=== PATIENT | male | born 1930 | race Caucasian/White ===

== ENCOUNTER 2018-03-08 05:46 | Inpatient (IN) | payer MEDICARE, MEDICAID ==
[~2018-03-08] VITALS: Ht 172.7 cm; Wt 69.4 kg
--- NOTE | 2018-03-08 05:46 | NUR ---
PT BBRA 102 FROM HOME C/O VOMITTING. PT NOTED TO BE LETHARGIC AND AAOX1. PT IS HYPOTHERMIC WITH HYPERTENSION AND TACHYCARDIA. FAMILY IS AT BEDSIDE STATING "THIS IS NORMAL FOR HIM BECAUSE HE HAS DEMENTIA". WILL CONTINUE TO MONITOR FOR ANY CHANGES DURING THE SHIFT.
[2018-03-08] MEDS ORDERED: LIDOCAINE 2% JEL UROJET 10 ML MM ONE ×2 (06:15→06:30)
[2018-03-08] MEDS ORDERED: MEROPENEM 1 G VIAL IV ONE (06:24)
[2018-03-08] MEDS ORDERED: ONDANSETRON HCL/PF 4 MG/2 ML VIAL ONE (06:24)
[2018-03-08] MEDS ORDERED: IV NS 0.9% 1,000 ML BAG IV ONE (06:30)
[2018-03-08] MEDS ORDERED: ONDANSETRON HCL/PF - ER 4 MG/2 ML VIAL IV ONE (06:30)
[2018-03-08] MEDS ORDERED: MEROPENEM 1 G in IV NS 0.9% 100 ML IV ONE (06:30)
--- NOTE | 2018-03-08 06:30 | NUR ---
BLOOD/URINE SENT TO LAB
--- NOTE | 2018-03-08 06:35 | NUR ---
EKG AT BEDSIDE
[2018-03-08 06:37] LABS: BASOPHILS % (AUTO) 0.4 % (0.0-2.0); EOSINOPHILS % (AUTO) 4.3 % (0.0-6.0); HEMATOCRIT 40 % (39-51); HEMOGLOBIN 13.8 g/dL (13.5-17.5); LYMPHOCYTES # (AUTO) 1.6 /CMM (0.8-4.8); LYMPHOCYTES % (AUTO) 25.8 % (20.0-44.0); MEAN CORPUSCULAR HGB CONC 34 g/dl (31.0-36.0); MEAN CORPUSCULAR VOLUME 94 fL (80-96); MONOCYTES # (AUTO) 0.3 /CMM (0.1-1.30); MONOCYTES % (AUTO) 4.8 % (2.0-12.0); NEUTROPHILS # (AUTO) 3.9 /CMM (1.8-8.9); NEUTROPHILS % (AUTO) 64.7 % (43.0-81.0); PLATELET COUNT (AUTO) 280 /CMM (150-450); RDW COEFFICIENT OF VARIATION 13.5 (11.5-15.0); RED BLOOD CELL COUNT(AUTO) 4.27 MIL/uL (4.5-6.0); WHITE BLOOD COUNT (AUTO) 6.1 K/uL (4.3-11.0)
[2018-03-08 06:39] LABS: CARBON DIOXIDE 24 mmol/L (21-32); CHLORIDE 104 mmol/L (98-107); CREATININE 0.9 mg/dL (0.6-1.3); GLUCOSE 132 mg/dL (74-106); POTASSIUM 3.3 mmol/L (3.5-5.1); SODIUM SERUM 140 mmol/L (136-145); UREA NITROGEN, BLOOD 11 mg/dL (7-18)
[2018-03-08 06:47] LABS: ALANINE AMINOTRANSFERASE 35 U/L (12-78); ALKALINE PHOSPHATASE 57 U/L (46-116); ASPARTATE AMINOTRANSFERASE 21 U/L (15-37); BILIRUBIN,DIRECT 0.1 mg/dL (0.0-0.2); BILIRUBIN,TOTAL 0.9 mg/dL (0.2-1.0); TOTAL PROTEIN, SERUM 7.8 g/dL (6.4-8.2)
[2018-03-08 06:56] LABS: TROPONIN I < 0.017 ng/mL (0.00-0.056)
[2018-03-08 06:59] LABS: APPEARANCE,URINE CLEAR (CLEAR); BILIRUBIN,URINE NEGATIVE (NEGATIVE); BLOOD, URINE 2+ Ery/uL (NEGATIVE); COLOR,URINE YELLOW (YELLOW); KETONES,URINE NEGATIVE (NEGATIVE); LEUKOCYTE ESTERASE ,URINE NEGATIVE (NEGATIVE); NITRITE, URINE NEGATIVE (NEGATIVE); PH,URINE 5.5 (5.0-8.0); PROTEIN,URINE NEGATIVE (NEGATIVE); UGLUCOSE NEGATIVE (NEGATIVE); UROBILINOGEN,URINE 0.2 EU/dL (0.2)
[2018-03-08 07:00] LABS: INR 1.07 (0.87-1.13)
[2018-03-08 07:07] LABS: BACTERIA,URINE None seen /HPF (None Seen); WBC,URINE 0-2 /HPF (0-3)
[2018-03-08 07:08] LABS: SQUAMOUS EPITHELIAL CELL,UR Few /HPF (None Seen)
--- NOTE | 2018-03-08 07:20 | NUR ---
PT OFF TO CT
--- NOTE | 2018-03-08 07:28 | NUR ---
PT BACK FROM CT SCAN
--- NOTE | 2018-03-08 07:30 | NUR ---
RECEIVED REPORT FOR ARELI.
--- NOTE | 2018-03-08 08:38 | NUR ---
PATIENT TAKEN TO CT VIA STRETCHER.
--- NOTE | 2018-03-08 08:51 | NUR ---
PATIENT RETURNED FROM CT IN STABLE CONDITION.
--- NOTE | 2018-03-08 09:43 | NUR ---
RITIKA KAT APPLIED PER DR. NAPIER'S ORDERS.
--- NOTE | 2018-03-08 09:55 | NUR ---
REQUESTED DESTINI BED FROM [facility]
--- NOTE | 2018-03-08 10:00 | NUR ---
DESTINI: 115-1, DX: PNEUMONIA
--- NOTE | 2018-03-08 10:06 | NUR ---
DAVID HERNANDEZ [phone]
[2018-03-08] MEDS ORDERED: OMEP20CA10 PO (10:27)
[2018-03-08] MEDS ORDERED: ASPI-1169 PO (10:27)
[2018-03-08] MEDS ORDERED: ALEN70TA45 PO (10:27)
[2018-03-08] MEDS ORDERED: DOCU250C14 PO (10:27)
[2018-03-08] MEDS ORDERED: POTA8TAB8 PO (10:27)
[2018-03-08] MEDS ORDERED: ERGO500014 PO (10:27)
[2018-03-08] MEDS ORDERED: ESCI10TA PO (10:27)
[2018-03-08] MEDS ORDERED: AMLO10TA6 PO (10:27)
[2018-03-08] MEDS ORDERED: FINA5TAB11 PO (10:27)
[2018-03-08] MEDS ORDERED: TAMS0.4C34 PO (10:27)
[2018-03-08] MEDS ORDERED: LOSA1TAB36 PO (10:27)
[2018-03-08] MEDS ORDERED: FOLI1TAB16 PO (10:27)
[2018-03-08] MEDS ORDERED: FURO40TA5 PO (10:27)
--- NOTE | 2018-03-08 10:27 | NUR ---
REPORT GIVEN TO SOLO GUTIERRES FOR ARELI UPON ADMISSION.
--- NOTE | 2018-03-08 10:27 | NUR ---
TD/RN REPORT FROM ER REPORT RECEIVED FROM ER NURSE LAURA FOR PT TRO BE ADMITTED FOR PNEUMONIA, UNDER THE CARE OF DR. HERNANDEZ. AWAITING FOR PT'S ARRIVAL.
[2018-03-08] MEDS ORDERED: THIA50TA PO (10:28)
[2018-03-08] MEDS ORDERED: DONE10TA44 PO (10:32)
[2018-03-08] MEDS ORDERED: MEMA10TA PO (10:32)
--- NOTE | 2018-03-08 11:20 | NUR ---
PATIENT TRANSPORTED TO [facility] VIA ACLS PROTOCOL. RNSOLO TO PROVIDE ARELI.
--- NOTE | 2018-03-08 11:30 | NUR ---
TD/TICKET SORTER TO DESTINI - ROOM 115#1 PT ARRIVED VIA GURNEY ACCOMPANIED BY ER NURSE LAURA, MANAGER DECISION SUPPORT AND PT'S SON. PT TRANSFERRED TO HOSPITAL BED. PT A/O X 1, CONFUSED. ON ROOM AIR SATURATING @ 96%, LUNG SOUNDS DIMINISHED, ON TELE WITH SINUS RHYTHM, HR 96. IV SITE PATENT WITH NO S/S OF INFECTION, SL. WALKER CATHETER INTACT NOTED WITH CLEAR YELLOW URINE OUTPUT. BILATERAL WRIST RESTRAINTS TO BE PLACED, PT BECOMING MORE CONFUSED AND COMBATIVE. CL WITHIN REACHED AND SAFETY MAINTAINED.
[2018-03-08 12:00] VITALS: BP 170/78
--- NOTE | 2018-03-08 12:15 | NUR ---
TD/RN ADDITIONAL ADMITTING ORDERS CALLED DR. HERNANDEZ, NOTIFIED HIM OF LACTIC ACID RESULTS, RECEIVED SEVERAL T.Os TO INCLUDE PHYSICIANS CONSULTS, LAB DRAWS AND MEDICATIONS. ORDERS NOTED AND TO BE CARRIED. ON GOING MONITORING.
[2018-03-08] MEDS ORDERED: ONDANSETRON HCL/PF 4 MG/2 ML VIAL IV PRN ×2 (12:30)
[2018-03-08] MEDS ORDERED: IV NS 0.9% 1,000 ML BAG IV PRN (12:30)
[2018-03-08] MEDS ORDERED: ACETAMINOPHEN 325 MG TABLET PO PRN (12:30)
[2018-03-08 12:50] LABS: ABG BASE EXCESS -2.6 mmol/L; ABG OXYGEN SATURATION 96.6 % (92.0-98.5); ABG PCO2 32.8 mmHg (35.0-45.0); ABG PH 7.424 (7.350-7.450); ABG PO2 97.8 mmHg (75.0-100.0); AaDO2 12.7 mmHg; COHb 0.2 % (0.5-1.5); MetHb 0.5 % (0.0-1.5); O2Hb 95.9 % (94.0-97.0); SITE, ABG Right Femoral; VENT MODE, BG ROOM AIR
[2018-03-08 12:56] LABS: MAGNESIUM 1.9 mg/dL (1.8-2.4)
[2018-03-08] MEDS ORDERED: PIPERACILLIN /TAZOBACTAM 3.375 G in IV D5W 100 ML IV SCH (12:56)
[2018-03-08] MEDS ORDERED: IV NS 0.9% 1,000 ML IV PRN ×2 (13:00→18:00)
[2018-03-08 13:22] LABS: THYROID STIMULATING HORMONE 3.257 uIU/mL (0.358-3.74)
[2018-03-08] MEDS ORDERED: FEE PK DOSING 1 MIN EA MC ONE (13:23)
[2018-03-08] MEDS: ZOSYN IVPB 3.375 G in IV D5W 50ml IV SCH ×2 (14:59→17:47)
[2018-03-08] MEDS: VANCOMYCIN 1 GM in IV NS 0.9% 250 ML IV SCH (15:46)
[2018-03-08 16:00] VITALS: BP 165/75
[2018-03-08] MEDS ORDERED: VANCOMYCIN 1 GM in IV D5W 250 ML IV SCH (17:00)
[2018-03-08] MEDS ORDERED: PNEUMOCOCCAL 23-VAL P-SAC VAC 0.5 ML VIAL SQ ONE (17:51)
--- NOTE | 2018-03-08 18:03 | NUR ---
TD/RN PNEUMOCOCCAL VACCINE VACCINE CRITERIA ASSESSED, CONSENT OBTAINED. PT GIVEN PNEUMOCOCCAL VACCINE. PT TOLERATED ADMINISTRATION.
[2018-03-08 20:00] VITALS: BP 140/68
--- NOTE | 2018-03-08 20:00 | NUR ---
TD/RN AM SHIFT END NOTES ALL NEEDS MET. RESULTS OF LACTIC ACIDS HAVE BEEN REPORTED TO DR. HERNANDEZ, AND ORDERS WERE CARRIED OUT. IV SITE PATENT WITH ON GOING INFUSION ON NS @ 200CC/HR, PER MD NO STOP DATE AT THIS TIME. ANOTHER LACTIC ACID DRAW ORDERED AT THIS TIME, ENDORSED TO PM NURSE TO CLARIFY WITH MD IF @2HRS OF LACTIC ACID WILL BE CONTINUED AFTER LATEST RESULT NOTIFIED. WALKER CATHETER INTACT AND BILATERAL WRIST RESTRAINTS IN PLACED. PT ENDORSED TO PM NURSE TO CONTINUE CARE. CL WITHIN REACHED AND SAFETY MAINTAINED.
[2018-03-08] MEDS: PANTOPRAZOLE 40 MG VIAL IV SCH (20:53)
[2018-03-08] MEDS: ENOXAPARIN SODIUM 40 MG/0.4 ML DISP.SYRIN SQ SCH (20:54)
--- NOTE | 2018-03-08 21:00 | NUR ---
TEST ENGINEERING INTERN - REC'D PT. AT 19:00, VERBAL REPORT ENDORSED TO ME BY SOLO GUTIERRES. PT. IS AN [place] SPEAKING MALE, THAT IS PHYSICALLY ABUSIVE TO STAFF. BILAT. SOFT WRIST RESTRAINTS WERE ALREADY ON PT., HOWEVER, PT. IS STILL ABLE TO GRAB AT ANYTHING HE CAN. PT. IS VERY STRONG TO ALL EXT.X 4. (PT. IS ATTEMPTING TO KICK STAFF ALSO). PT'S SON/RUMA JUST ARRIVED. A COMPLETE STATUS UPDATE WAS ADDRESSED TO SON, ESPECIALLY RE: PT'S COMBATIVE BEHAVIOR. PT'S SON WAS ALREADY AWARE OF IT. PT.WAS DUE FOR A LACTIC ACID LAB DRAW, BUT THE PHLEB - T0MIST LEFT W/O TELLING STAFF THAT PT. WAS COMBATIVE W/HER. LAB WAS CALLED FOR ANOTHER DRAW. AFEBRILE. NO EDEMA. RAC-18G HAS 0.9%NS INFUSING AT 200CC/HR. SITE IS CDI. SKIN INTACT. WALKER CATH TO GRAVITY W/GOOD UOP. PT.IS ON R/A W/O2 SATS >96%. LUNG GAMBLE HAVE DIM. RHONCHI AUSC. NO N&V NOTED. SBP'S ARE 140-170'S. HR/90'S W/PAC'S & PVC'S. CONT. POC.
[2018-03-08] MEDS ORDERED: CLONIDINE HCL 0.1MG/24H PTWK 1 EA PATCH TD SCH (22:30)
[2018-03-08] MEDS ORDERED: IV NS 0.9% 1,000 ML BAG IV SCH (22:30)
[2018-03-09] VITALS (7 sets, daily range): BP systolic 109–141; BP diastolic 52–70
--- NOTE | 2018-03-09 00:01 | NUR ---
BRASS CUTTER - DR. HERNANDEZ WAS HERE AT 21:45 TO ASSESS PT. STATUS UPDATE WAS ADDRESSED. ORDERS REC'D. MIV WAS TITRATED DOWN TO 150CC/HR. CLONIDINE PATCH 0.1MG/TP ORDERED. LACTIC ACID LAB DRAWS ARE NOW Q 4 HRS INSTEAD OF Q 2HR. BLOOD CX'S WERE ALSO DONE W/21:00 LACTIC ACID DRAW. LA WAS 2.8, DOWN FROM LAST DRAW OF 3.7. PT. IS MONITORED CLOSELY. CONT. POC.
[2018-03-09] MEDS: ZOSYN IVPB 3.375 G in IV D5W 50ml IV SCH ×4 (00:30→17:43)
[2018-03-09] MEDS: VANCOMYCIN 1 GM in IV NS 0.9% 250 ML IV SCH ×2 (01:36→15:42)
[2018-03-09 06:07] LABS: BASOPHILS % (AUTO) 0.2 % (0.0-2.0); EOSINOPHILS % (AUTO) 0.1 % (0.0-6.0); HEMATOCRIT 37 % (39-51); HEMOGLOBIN 12.5 g/dL (13.5-17.5); LYMPHOCYTES # (AUTO) 0.8 /CMM (0.8-4.8); MEAN CORPUSCULAR HGB CONC 34 g/dl (31.0-36.0); MEAN CORPUSCULAR VOLUME 94 fL (80-96); MONOCYTES # (AUTO) 0.6 /CMM (0.1-1.30); MONOCYTES % (AUTO) 6.2 % (2.0-12.0); NEUTROPHILS # (AUTO) 8.7 /CMM (1.8-8.9); NEUTROPHILS % (AUTO) 85.5 % (43.0-81.0); PLATELET COUNT (AUTO) 266 /CMM (150-450); RDW COEFFICIENT OF VARIATION 13.3 (11.5-15.0); RED BLOOD CELL COUNT(AUTO) 3.91 MIL/uL (4.5-6.0); WHITE BLOOD COUNT (AUTO) 10.1 K/uL (4.3-11.0)
--- NOTE | 2018-03-09 06:45 | NUR ---
DEVELOPMENTAL THERAPIST - PT. REC'D A COMPLETE BEDBATH AT 4AM, NO S/S OF DISTRESS OR DISCOMFORT NOTED. PT. HAS INTERMITTENT TIMES OF LUCIDITY & CONFUSION. CLONIDINE PATCH ON PT'S RT.UPPER C/W. LAST LACTIC ACID WAS #1.5 AT 02:30 AM. AWAITING 6AM LABS/PENDING. HICCUPS STOPPED AFTER BEDBATH. 0.9%NS IS STILL INFUSING AT 150CC/HR. DR. HERNANDEZ DID TALK TO BOTH SONS PRIOR TO LEAVING LAST NIGHT. BROUGHT MEDICAL RECORDS & AN EMAR SHEET FROM [facility]. FROM A PRIOR ADMISSION. EXTENSIVE HX IS NOTED IN THESE FORMS THAT ARE NOW IN THE PTS CHART. CONT. POC.
[2018-03-09 06:47] LABS: CALCIUM, SERUM 8.5 mg/dL (8.5-10.1); CARBON DIOXIDE 26 mmol/L (21-32); CHLORIDE 107 mmol/L (98-107); CREATININE 0.9 mg/dL (0.6-1.3); GLUCOSE 101 mg/dL (74-106); MAGNESIUM 1.8 mg/dL (1.8-2.4); PHOSPHORUS 2.1 mg/dL (2.5-4.9); POTASSIUM 3.4 mmol/L (3.5-5.1); SODIUM SERUM 142 mmol/L (136-145); UREA NITROGEN, BLOOD 9 mg/dL (7-18)
[2018-03-09] MEDS ORDERED: IV NS 0.9% 1,000 ML IV PRN (07:00)
--- NOTE | 2018-03-09 08:00 | NUR ---
TD/RN AM SHIFT INITIAL NOTES RECEIVED PT ASLEEP IN BED, PT A/O X 1, CONFUSED, CALM AT THIS TIME. ON ROOM AIR SATURATING @ 100%, LUNG SOUNDS DIMINISHED. ON TELE MONITORING WITH SINUS RHYTHM, HR 72. WITH ON GOING IV INFUSION OF NS @ 150CC/HR, IV SITE PATENT WITH NO S/S OF INFECTION. WALKER CATHETER INTACT WITH CLEAR YELLOW URINE OUTPUT. BILATERAL WRIST RESTRAINTS RELEASED TO CHECK FOR CIRCULATION AND COMFORT THEN PLACED BACK. PT IS COMFORTABLE. CL WITHIN REACHED AND SAFETY MAINTAINED. ON GOING MONITORING.
[2018-03-09] MEDS ORDERED: Magnesium 1GM/D5W 100ML PREMIX 100 ML IV SCH ×2 (09:00→10:00)
[2018-03-09] MEDS: K PHOS NEUTRAL 250 MG TABLET PO SCH ×6 (09:37→20:14)
[2018-03-09] MEDS ORDERED: NEUTRA PHOS 1 POWD.PACKET PO SCH (10:30)
[2018-03-09 10:52] LABS: THYROID STIMULATING HORMONE 1.249 uIU/mL (0.358-3.74)
[2018-03-09] MEDS: Potassium Chloride 10 MEQ in IV NS 0.9% 1,000 ML IV PRN (11:48)
[2018-03-09 13:00] LABS: TROPONIN I 0.314 ng/mL (0.00-0.056)
--- NOTE | 2018-03-09 15:44 | NUR ---
MS1/MEAT HOSTESS OF CARE REPORT GIVEN TO NURSE ODONNELL. PT ENDORSED TO CONTINUE CARE.
--- NOTE | 2018-03-09 15:45 | NUR ---
ms rn notes Transfer care from [facility]. Patient in bed, awake, head of bed elevated, bilateral soft restraint in placed. On room air and tolerated well. IV intact and patent with IVF infusing well. call light with in patient reach, will continue to monitor.
--- NOTE | 2018-03-09 19:12 | NUR ---
ms rn closing notes All needs provided, attended, and anticipated. Patient in bed and stable at this time. Call light with in patient reach, endorsed to next shift RN to continue care.
--- NOTE | 2018-03-09 19:20 | NUR ---
RN M/S NOTE RECEIVED PATIENT CONFUSED, AOX1, BILATERAL SOFT WRIST RESTRAINTS, PATIENT PULLED OUT WALKER CATHETER, NO SIGNS OF TRAUMA NO BLOOD NOTED, RAC #20G PATENT FLUSHING WELL, WITH NS WITH 10MEQ KCL AT 100 ML/HR, SITE CDI, NO PAIN NOTED, NO S/SX OF CARDIAC OR RESPIRATORY DISTRESS NOTED, WILL CONTINUE TO MONITOR FOR ANY CHANGES IN CONDITION, SAFETY MAINTAINED AT ALL TIMES, BED IN LOW LOCKED POSITION AND CALL LIGHT WITHIN REACH.
[2018-03-09] MEDS: PANTOPRAZOLE 40 MG VIAL IV SCH (20:14)
[2018-03-09] MEDS: ENOXAPARIN SODIUM 40 MG/0.4 ML DISP.SYRIN SQ SCH (20:15)
[2018-03-10] MEDS: ZOSYN IVPB 3.375 G in IV D5W 50ml IV SCH ×5 (02:41→23:12)
[2018-03-10] MEDS: VANCOMYCIN 1 GM in IV NS 0.9% 250 ML IV SCH ×2 (02:43→13:44)
[2018-03-10 04:00] VITALS: BP 160/84
[2018-03-10 06:56] LABS: BASOPHILS % (AUTO) 0.4 % (0.0-2.0); EOSINOPHILS % (AUTO) 1.2 % (0.0-6.0); HEMATOCRIT 41 % (39-51); LYMPHOCYTES # (AUTO) 1.8 /CMM (0.8-4.8); LYMPHOCYTES % (AUTO) 17.5 % (20.0-44.0); MEAN CORPUSCULAR HGB CONC 34 g/dl (31.0-36.0); MEAN CORPUSCULAR VOLUME 95 fL (80-96); MONOCYTES # (AUTO) 0.7 /CMM (0.1-1.30); MONOCYTES % (AUTO) 7.3 % (2.0-12.0); NEUTROPHILS # (AUTO) 7.5 /CMM (1.8-8.9); NEUTROPHILS % (AUTO) 73.6 % (43.0-81.0); PLATELET COUNT (AUTO) 283 /CMM (150-450); RDW COEFFICIENT OF VARIATION 13.6 (11.5-15.0); RED BLOOD CELL COUNT(AUTO) 4.36 MIL/uL (4.5-6.0); WHITE BLOOD COUNT (AUTO) 10.2 K/uL (4.3-11.0)
[2018-03-10 07:11] LABS: ALANINE AMINOTRANSFERASE 40 U/L (12-78); ALBUMIN 3.5 g/dL (3.4-5.0); ALKALINE PHOSPHATASE 54 U/L (46-116); ASPARTATE AMINOTRANSFERASE 46 U/L (15-37); BILIRUBIN,TOTAL 2.1 mg/dL (0.2-1.0); CALCIUM, SERUM 8.3 mg/dL (8.5-10.1); CARBON DIOXIDE 26 mmol/L (21-32); CHLORIDE 103 mmol/L (98-107); GLUCOSE 114 mg/dL (74-106); MAGNESIUM 2.1 mg/dL (1.8-2.4); PHOSPHORUS 3.2 mg/dL (2.5-4.9); POTASSIUM 3.2 mmol/L (3.5-5.1); SODIUM SERUM 140 mmol/L (136-145); TOTAL PROTEIN, SERUM 7.4 g/dL (6.4-8.2); UREA NITROGEN, BLOOD 7 mg/dL (7-18)
--- NOTE | 2018-03-10 07:35 | NUR ---
RN OPENING NOTES RECEIVED PT. PT IS STABLE AND SLEEPING IN BED. PER DEHYDROGENATION SUPERVISOR REPORT, PT IS CONFUSED, ANXIOUS AND COMBATITIVE. BILATERAL WRIST RESTRAINTS ORDERED AND PLACED BY DEHYDROGENATION SUPERVISOR RN. IV ACCESS LOCATED ON RIGHT AC 20G INFUSING NS WITH 10 MEQ kcl @ 100 ML/HR. BLOOD CULTURE REMAINS PENDING. SAFETY MEASURES IN PLACE, CALL LIGHT WITHIN REACH. WILL CONTINUE TO MONITOR.
[2018-03-10 08:00] VITALS: BP 160/84
[2018-03-10] MEDS: Potassium Chloride 10 MEQ in IV NS 0.9% 1,000 ML IV PRN (08:25)
[2018-03-10] MEDS: K PHOS NEUTRAL 250 MG TABLET PO SCH (08:25)
[2018-03-10] MEDS: POTASSIUM CHLORIDE 20 MEQ TAB.PRT.SR PO SCH ×2 (10:59→11:35)
[2018-03-10 12:00] VITALS: BP 141/86
[2018-03-10 16:00] VITALS: BP 131/67
--- NOTE | 2018-03-10 19:27 | NUR ---
RN CLOSING NOTES PT IN BED RESTING. NO S/S OF RESP DISTRESS OR SOB. NO C/O PAIN AT THIS TIME. PT IS ANXIOUS/DISRUPTIVE & ATTEMPTING TO GET OUT OF BED. OVERSEAMER NURSE AT BEDSIDE ATTEMPTING TO CALM PATIENT. ALL PT NEEDS ANTICIPATED AND MET, SAFETY MEASURES IN PLACE, CALL LIGHT IN REACH. WILL ENDORSE TO OVERSEAMER FOR ARELI.
[2018-03-10 20:00] VITALS: BP 116/60
[2018-03-10] MEDS: PANTOPRAZOLE 40 MG VIAL IV SCH (21:04)
[2018-03-10] MEDS: ENOXAPARIN SODIUM 40 MG/0.4 ML DISP.SYRIN SQ SCH (21:06)
[2018-03-11] MEDS: VANCOMYCIN 1 GM in IV NS 0.9% 250 ML IV SCH ×2 (02:11→13:42)
[2018-03-11 04:00] VITALS: BP_SYST 151; BP_SYST 154; BP_DIAS 72; BP_DIAS 73
[2018-03-11] MEDS: Potassium Chloride 10 MEQ in IV NS 0.9% 1,000 ML IV PRN (05:15)
[2018-03-11] MEDS: ZOSYN IVPB 3.375 G in IV D5W 50ml IV SCH ×4 (06:47→23:37)
[2018-03-11 06:59] LABS: CALCIUM, SERUM 8.6 mg/dL (8.5-10.1); CARBON DIOXIDE 28 mmol/L (21-32); CHLORIDE 105 mmol/L (98-107); CREATININE 0.8 mg/dL (0.6-1.3); GLUCOSE 89 mg/dL (74-106); POTASSIUM 3.1 mmol/L (3.5-5.1); SODIUM SERUM 142 mmol/L (136-145); UREA NITROGEN, BLOOD 8 mg/dL (7-18)
--- NOTE | 2018-03-11 07:00 | NUR ---
MSRN NOTES. PT RECEIVED A&0X1 AND RESTING IN BED. PT WITH SWR IN.SITU AND NEURO INTACT. PT NPO R/T ABDO US. PT WITH IVC AT R AC INTACT AND SALINE FLUSH PATENT, IVF RECOMMENCED PER PRX. PT WITH FC INTACT AND OPERATIONAL DRAINING LITE PINK/YELLOW URINE. PT BED IN LOWEST LOCKED POSITION WITH HANDRAILSX4 AND CALL VELARDE WITHIN REACH, RN BASED OUTSIDE ROOM FOR SAFETY. PT REPOSITIONED AND SHEETS STRAIGHTENED FOR COMFORT, ROOM STIMULI LIMITED AND PT IS WITHOUT CONCERN OR COMPLAINT AT THIS TIME.
[2018-03-11 08:00] VITALS: BP 143/60
[2018-03-11] MEDS ORDERED: POTASSIUM CHLORIDE 20 MEQ TAB.PRT.SR PO SCH (09:00)
[2018-03-11] MEDS: Potassium Chloride 20 MEQ in IV NS 0.9% 1,000 ML IV PRN (10:50)
[2018-03-11] MEDS: POTASSIUM CHLORIDE 20 MEQ TAB.PRT.SR PO SCH (10:59)
--- NOTE | 2018-03-11 13:00 | NUR ---
MSRN NOTES. PT ATTEMPTING TO REMOVED WALKER CATH WITH FEET. WALKER SECURED WITH BANDAGE AT 3 POINTS ON LEG.
[2018-03-11] MEDS: GABAPENTIN 100 MG CAPSULE PO SCH ×2 (13:42→16:10)
[2018-03-11 15:43] LABS: CALCIUM, SERUM 8.4 mg/dL (8.5-10.1); CARBON DIOXIDE 26 mmol/L (21-32); CHLORIDE 106 mmol/L (98-107); GLUCOSE 126 mg/dL (74-106); POTASSIUM 3.6 mmol/L (3.5-5.1); SODIUM SERUM 143 mmol/L (136-145); UREA NITROGEN, BLOOD 9 mg/dL (7-18)
[2018-03-11] MEDS: GABAPENTIN 300 MG CAPSULE PO STA ×2 (15:58→16:15)
[2018-03-11 16:00] VITALS: BP 129/44
--- NOTE | 2018-03-11 16:10 | NUR ---
MSRN NOTES. MD OLVERA REQUESTING 300MG NEURONTIN PO ONCE, LATER ORDER OF 100MG CANCELED, ORDERS PLACED.
--- NOTE | 2018-03-11 17:00 | NUR ---
MSRN NOTES. PT REFUSING MEDICATIONS, COMBATIVE AND RESTLESS. MD OLVERA AWARE.
[2018-03-11] MEDS ORDERED: OLANZAPINE 10 MG VIAL IM ONE (18:00)
--- NOTE | 2018-03-11 18:00 | NUR ---
MSRN NOTES. MD OLVERA REQUESTING ZYPREXA 2.5MG IM X1. ORDERS PLACED.
--- NOTE | 2018-03-11 18:16 | NUR ---
MSRN CLOSING NOTES. PT IN BED, RESTLESS. PT WITH SWR IN.SITU AND NEURO INTACT. PT WITH IVC AT R AC INTACT AND OPERATIONAL. PT WITH FC INTACT AND OPERATIONAL DRAINING PINK/YELLOW URINE. PT BED IN LOWEST LOCKED POSITION WITH HANDRAILSX4 AND CALL VELARDE WITHIN REACH. PT WITH 1:1 SITTER. PT ROOM STIMULI LIMITED. PT BED IN LOWEST LOCKED POSITION WITH HANDRAILSX4 AND CALL VELARDE WITHIN REACH. ALL DAY NURSE DUTIES ATTENDED TO. WILL ENDORSE TO NIGHT NURSE AT BEDSIDE FOR ARELI.
--- NOTE | 2018-03-11 18:35 | NUR ---
MSRN NOTES. PT OK TO TAKE 300MG NEURONTINX1 PER MD OLVERA, FREDERICK X1 CANCELLED AWARE.
[2018-03-11 21:00] VITALS: BP 115/44
[2018-03-11] MEDS: PANTOPRAZOLE 40 MG VIAL IV SCH (21:23)
[2018-03-11] MEDS: ENOXAPARIN SODIUM 40 MG/0.4 ML DISP.SYRIN SQ SCH (21:24)
[2018-03-12] MEDS: VANCOMYCIN 1 GM in IV NS 0.9% 250 ML IV SCH (02:12)
[2018-03-12 04:00] VITALS: BP 134/65
[2018-03-12] MEDS: ZOSYN IVPB 3.375 G in IV D5W 50ml IV SCH ×4 (05:13→23:24)
[2018-03-12] MEDS: Potassium Chloride 20 MEQ in IV NS 0.9% 1,000 ML IV PRN (05:19)
[2018-03-12 07:20] LABS: CALCIUM, SERUM 8.5 mg/dL (8.5-10.1); CARBON DIOXIDE 26 mmol/L (21-32); CHLORIDE 108 mmol/L (98-107); CREATININE 0.9 mg/dL (0.6-1.3); GLUCOSE 100 mg/dL (74-106); POTASSIUM 3.5 mmol/L (3.5-5.1); SODIUM SERUM 142 mmol/L (136-145); UREA NITROGEN, BLOOD 9 mg/dL (7-18)
[2018-03-12 08:00] VITALS: BP 134/65
--- NOTE | 2018-03-12 08:30 | NUR ---
MEDSURG RN NOTE ATTEMPTED NUMEROUS TIMES TO GIVE PATIENT MEDICATION HARD TO WAKE UP. PATIENT CONFUSED AND COMBATIVE. F/C INTACT.UNABLE TO SCALE PATIENT. BILATERAL RESTRAINTS INTACT. CIRCULATION, COLOR AND PULSES CHECKED. ATTEMPTED TO REMOVE RESTRAINTS PATIENT ATTEMPTED TO HIT ME. WILL CONTINUE TO MONITOR CLOSELY. IV RAC PATENT AND INTACT NS WITH POTASSIUM 20MEQ @ 70 ML/HR. SITTER AT BEDSIDE ALL SAFETY MEASURES IN PLACE.
[2018-03-12] MEDS: POTASSIUM CHLORIDE 20 MEQ TAB.PRT.SR PO SCH ×2 (08:31→09:59)
[2018-03-12] MEDS: GABAPENTIN 100 MG CAPSULE PO SCH ×2 (08:31→09:00)
--- NOTE | 2018-03-12 11:53 | NUR ---
MEDSURG NOTE DR. OLVERA AT BESIDE. ORDERED DISCONTINUE GABAPENTIN. ORDERED DEPACON 125ML/HR Q12HR. FIRST DOSE NOW.
[2018-03-12] MEDS ORDERED: VALPROATE 125 MG in IV D5W 100 ML IV SCH (13:00)
[2018-03-12 16:00] VITALS: BP 159/85
[2018-03-12] MEDS: PANTOPRAZOLE 40 MG VIAL IV SCH (20:07)
[2018-03-12] MEDS: VALPROATE 250 MG in IV D5W 100 ML IV SCH (20:07)
[2018-03-12] MEDS: ENOXAPARIN SODIUM 40 MG/0.4 ML DISP.SYRIN SQ SCH (20:08)
[2018-03-12 21:00] VITALS: BP 141/69
--- NOTE | 2018-03-13 01:25 | NUR ---
BRAD RN NOTES, PATIENT AGITATED KICKING, HITTING, YELLING, REMOVING TUBINGS, AND CURSING AND DISTURBING ANOTHER PATIENT'S SLEEP, REDIRECTED BEHAVIOR AND DISTRACTION PROVIDED, AND PATIENT CONTINUE WITH SAME BEHAVIOR, CALLED Jose OLVERA AND REPLIED WITH N.O OF ATIVAN 1MG X1 NOW, ORDER NOTED AND CARRIED OUT, WILL ADMINISTERED MED ORDERD,A DN CONTINUE MONITORING PATIENT CLOSELY, SITTER AT BEDSIDE, PATIENT SAFE, NO INJURIES NOTED AT THIS TIME.
[2018-03-13] MEDS ORDERED: LORAZEPAM INJ 2 MG/ML VIAL IV ONE (01:30)
[2018-03-13 04:00] VITALS: BP 138/71
[2018-03-13] MEDS: Potassium Chloride 20 MEQ in IV NS 0.9% 1,000 ML IV PRN ×2 (05:12→18:39)
[2018-03-13] MEDS: ZOSYN IVPB 3.375 G in IV D5W 50ml IV SCH ×2 (05:13→13:10)
[2018-03-13 07:05] LABS: CALCIUM, SERUM 8.8 mg/dL (8.5-10.1); CARBON DIOXIDE 25 mmol/L (21-32); CHLORIDE 105 mmol/L (98-107); GLUCOSE 170 mg/dL (74-106); POTASSIUM 3.4 mmol/L (3.5-5.1); SODIUM SERUM 138 mmol/L (136-145); UREA NITROGEN, BLOOD 7 mg/dL (7-18)
[2018-03-13 08:00] VITALS: BP 144/86
[2018-03-13] MEDS: VALPROATE 250 MG in IV D5W 100 ML IV SCH ×2 (08:36→20:21)
[2018-03-13 16:00] VITALS: BP 155/91
[2018-03-13 17:08] LABS: APPEARANCE,URINE SL CLOUDY (CLEAR); BILIRUBIN,URINE NEGATIVE (NEGATIVE); BLOOD, URINE 3+ Ery/uL (NEGATIVE); COLOR,URINE YELLOW (YELLOW); KETONES,URINE TRACE (NEGATIVE); LEUKOCYTE ESTERASE ,URINE NEGATIVE (NEGATIVE); NITRITE, URINE NEGATIVE (NEGATIVE); PROTEIN,URINE TRACE mg/dl (NEGATIVE); UGLUCOSE NEGATIVE (NEGATIVE)
[2018-03-13] MEDS ORDERED: Z GUARD REMEDY 2 OZ OINT TP PRN (17:30)
[2018-03-13 17:46] LABS: BACTERIA,URINE None seen /HPF (None Seen); RBC,URINE 51-80 /HPF (0-2); SQUAMOUS EPITHELIAL CELL,UR None Seen /HPF (None Seen); WBC,URINE NONE SEEN /HPF (0-3)
[2018-03-13 20:00] VITALS: BP 133/64
[2018-03-13] MEDS: PANTOPRAZOLE 40 MG VIAL IV SCH (20:20)
[2018-03-13] MEDS: ENOXAPARIN SODIUM 40 MG/0.4 ML DISP.SYRIN SQ SCH (20:29)
--- NOTE | 2018-03-13 22:31 | NUR ---
,MS GUTIERRES NOTES RECEIVED ON BED AWAKE AND RESPONSIVE , SITTER AT BEDSIDE , PTS IS ON SARAH SOFT WRIST RESTRAINT , TO PREVENT FRO PULLING INVASIVE TUBING ,V/S STABLE AND AFEBRILE ALL DUE MEDS GIVEN ORDERED , KEPT PTS CLEAN DRY AND COMFORTABLE. WILL CONTINUE TO MONITOR PTS. Addendum: 03/14/18 at 0041 by ZOILA ESQUIVEL RN PTS NOT ON SITTER, ONLY BILATERAL SOFT WRIST RESTRAINT.
[2018-03-14 04:00] VITALS: BP 139/69
[2018-03-14 05:47] LABS: BASOPHILS % (AUTO) 0.3 % (0.0-2.0); EOSINOPHILS % (AUTO) 8.9 % (0.0-6.0); HEMATOCRIT 39 % (39-51); HEMOGLOBIN 13.3 g/dL (13.5-17.5); LYMPHOCYTES % (AUTO) 14.2 % (20.0-44.0); MEAN CORPUSCULAR HGB CONC 34 g/dl (31.0-36.0); MEAN CORPUSCULAR VOLUME 95 fL (80-96); MONOCYTES # (AUTO) 0.6 /CMM (0.1-1.30); MONOCYTES % (AUTO) 8.6 % (2.0-12.0); NEUTROPHILS # (AUTO) 4.7 /CMM (1.8-8.9); PLATELET COUNT (AUTO) 273 /CMM (150-450); RDW COEFFICIENT OF VARIATION 13.8 (11.5-15.0); RED BLOOD CELL COUNT(AUTO) 4.09 MIL/uL (4.5-6.0); WHITE BLOOD COUNT (AUTO) 6.9 K/uL (4.3-11.0)
[2018-03-14] MEDS: Potassium Chloride 20 MEQ in IV NS 0.9% 1,000 ML IV PRN ×2 (05:53→17:53)
[2018-03-14 06:03] LABS: ALANINE AMINOTRANSFERASE 68 U/L (12-78); ALBUMIN 2.9 g/dL (3.4-5.0); ALKALINE PHOSPHATASE 54 U/L (46-116); ASPARTATE AMINOTRANSFERASE 43 U/L (15-37); BILIRUBIN,TOTAL 1.4 mg/dL (0.2-1.0); CALCIUM, SERUM 8.7 mg/dL (8.5-10.1); CARBON DIOXIDE 27 mmol/L (21-32); CHLORIDE 109 mmol/L (98-107); CREATININE 0.8 mg/dL (0.6-1.3); GLUCOSE 96 mg/dL (74-106); POTASSIUM 3.4 mmol/L (3.5-5.1); SODIUM SERUM 144 mmol/L (136-145); TOTAL PROTEIN, SERUM 6.9 g/dL (6.4-8.2); UREA NITROGEN, BLOOD 4 mg/dL (7-18)
--- NOTE | 2018-03-14 06:22 | NUR ---
MS RN NOTES PTS REMAINS IN BED AWAKE AND RESPONSIVE CONT ON IVF OF NS +20 MEQ OF KCL AT 100CC/HR INFUSING WELL ,NO SOB NO DISTRESS NOTED.WELL ENDORSE TO RN DAY SHIFT FOR CONTINUITY OF CARE PTS REMAINS ON SARAH.WRIST RESTRAINT TO PREVENT PULLING INVASIVE TUBING V/S STBLE AFEBRILE.
[2018-03-14 08:00] VITALS: BP 163/81
[2018-03-14] MEDS ORDERED: POTASSIUM CHLORIDE 20 MEQ POWDER PACKET PO ONE (09:00)
[2018-03-14] MEDS: VALPROATE 250 MG in IV D5W 100 ML IV SCH (09:10)
[2018-03-14] MEDS: POTASSIUM CHLORIDE 20 MEQ POWDER PACKET PO SCH (09:10)
[2018-03-14 14:28] VITALS: BP 138/74
[2018-03-14 16:00] VITALS: BP 142/91
[2018-03-14] MEDS: GABAPENTIN 300 MG CAPSULE PO SCH (18:39)
[2018-03-14 20:00] VITALS: BP 151/70
--- NOTE | 2018-03-14 20:00 | NUR ---
MS/RN OPENING NOTES PATIENT IN BED, AWAKE, ALERT X2, REQUIRE SITTER FOR SAFETY, MONITORING AT ALL TIMES, RESPIRATIONS EVEN AND UNLABORED, REQUIRE MONITORING PATIENT REQUIRE REORIENTATION AND PULLING OUT TUBINGS, ON SOFT RESTRAINTS, SKIN WARM TO TOUCH, MONITORING FOR CIRCULATION, ON IV INFUSING AT NS WITH KCL 20 MEQ, IV SITE ON LFA W/ NO S/S OF INFILTRATION, BED IN LOCK POSITION, WILL MONITOR.RECEIVED ENDORSEMENT FROMFISH GUTIERRES FOR ARELI.
[2018-03-14] MEDS: PANTOPRAZOLE 40 MG VIAL IV SCH (20:43)
[2018-03-14] MEDS: ENOXAPARIN SODIUM 40 MG/0.4 ML DISP.SYRIN SQ SCH (20:44)
[2018-03-15 06:00] VITALS: BP 158/69
--- NOTE | 2018-03-15 06:30 | NUR ---
MS/RN NOTES PATIENT IN BED, ABLE TO SLEEP WITH SOME FREQUENT MONITORING FOR SAFETY. RESPIRATIONS EVEN AND UNLABORED. SKIN WARM TO TOUCH,
[2018-03-15 06:56] LABS: CALCIUM, SERUM 8.4 mg/dL (8.5-10.1); CARBON DIOXIDE 24 mmol/L (21-32); CHLORIDE 111 mmol/L (98-107); CREATININE 0.7 mg/dL (0.6-1.3); GLUCOSE 77 mg/dL (74-106); SODIUM SERUM 145 mmol/L (136-145); UREA NITROGEN, BLOOD 5 mg/dL (7-18)
[2018-03-15] MEDS ORDERED: NEOMY SULF/BACITRAC ZN/POLY 15 GM TUBE TP PRN (07:00)
--- NOTE | 2018-03-15 07:03 | NUR ---
WOUND CARE CONSULT PATIENT SEEN AND LEFT WRIST ABRASION EVALUATED. PLEASE SEE COMBINATION WELDER APPRENTICE ASSESSMENT IN PCS FOR TODAY. TREATMENT RECOMMENDATIONS MADE AND MD IN AGREEMENT. PATIENT ABLE TO MOVE ALL EXTREMITIES, MARKIE AT 19, SOFT WRIST RESTRAINTS IN USE FOR SAFETY. SITTER AT BEDSIDE. ALL DISCUSSED WITH NURSING. WILL SEE PRN. Addendum: 03/15/18 at 0707 by CLARITA CHING WNDNU Amended: Links added.
[2018-03-15 08:00] VITALS: BP 149/70
[2018-03-15] MEDS ORDERED: NEOMY SULF/BACITRAC ZN/POLY 15 GM TUBE TP SCH (09:00)
--- NOTE | 2018-03-15 09:00 | NUR ---
RN NOTES RECEIVED PATIENT AWAKE IN BED WITH NO DISTRESS NOTED. ON ROOM AIR TOLERATING WELL. BREATHING EVEN AND UNLABORED. NO PHYSICAL MANIFESTATION OF PAIN OR DISCOMFORT. ALERT AND RESPONSIVE WITH CONFUSION. FC IN PLACE DRAINING CLEAR YELLOW WITH NO FOUL ODOR URINE. SOFT WRIST RESTRAINT IN PLACE, WILL RELEASE EVERY TWO HOURS FOR HYGIENE, CIRCULATION AND POSITIONING. WILL CONTINUE TO MONITOR.
[2018-03-15] MEDS: GABAPENTIN 300 MG CAPSULE PO SCH ×2 (09:02→14:51)
[2018-03-15] MEDS: POTASSIUM CHLORIDE 20 MEQ POWDER PACKET PO SCH (09:08)
[2018-03-15] MEDS: VALPROATE 250 MG in IV D5W 100 ML IV SCH ×2 (09:09→14:51)
[2018-03-15] MEDS: Potassium Chloride 20 MEQ in IV NS 0.9% 1,000 ML IV PRN (10:40)
[2018-03-15 12:00] VITALS: BP 151/106
[2018-03-15] MEDS ORDERED: busPIRone 5 MG TABLET PO SCH (13:00)
--- NOTE | 2018-03-15 16:38 | NUR ---
RN NOTES PATIENT WANTS TO GO HOME. SON WAS AT BEDSIDE, AND WANTED TO TAKE HIS FATHER HOME. CALLED MD AND OBTAINED ORDER TO DC PATIENT TO HOME AND TO SEE HIM IN 1 WEEK. WRIST RESTRAINTS RELEASED. PIV LINE DISCONTINUED. WALKER CATHETER REMOVED. PROCEDURES WELL TOLERATED. VITAL SIGNS WNL. PATIENT DISCHARGED VIA WHEEL CHAIR AND ACCOMPANIED TO THE LOBY.
[2018-03-15] MEDS ORDERED: NYSTATIN (PYXIS) 500,000 UNIT/5 ML ORAL.SUSP PO SCH (17:00)
== END 2018-03-15 16:25 | disposition home or self-care (01) | DRG 871 ==
LOC: ER 05:48 → TELE-TD 10:25 → MEDSG1 03-09 10:27
PROVIDERS: ADMIT Family Medicine; ATTEND Family Medicine
DX: A41.9 Sepsis, unspecified organism (principal); J69.0 Pneumonitis due to inhalation of food and vomit; N39.0 Urinary tract infection, site not specified; E87.2 Acidosis; J98.11 Atelectasis; B37.0 Candidal stomatitis; F32.3 Major depressive disorder, single episode, severe with psychotic features; E83.39 Other disorders of phosphorus metabolism; E86.0 Dehydration; F02.80 Dementia in other diseases classified elsewhere, unspecified severity, without behavioral disturbance, psychotic disturbance, mood disturbance, and anxiety; K40.20 Bilateral inguinal hernia, without obstruction or gangrene, not specified as recurrent; D63.8 Anemia in other chronic diseases classified elsewhere; K21.9 Gastro-esophageal reflux disease without esophagitis; I95.9 Hypotension, unspecified; N40.1 Benign prostatic hyperplasia with lower urinary tract symptoms; N39.498 Other specified urinary incontinence; R63.4 Abnormal weight loss; Z68.23 Body mass index [BMI] 23.0-23.9, adult; E78.5 Hyperlipidemia, unspecified; Z86.73 Personal history of transient ischemic attack (TIA), and cerebral infarction without residual deficits; R26.9 Unspecified abnormalities of gait and mobility; M17.0 Bilateral primary osteoarthritis of knee; M16.0 Bilateral primary osteoarthritis of hip; M81.0 Age-related osteoporosis without current pathological fracture; B35.1 Tinea unguium; R15.9 Full incontinence of feces; Z95.5 Presence of coronary angioplasty implant and graft; G30.9 Alzheimer's disease, unspecified; G62.9 Polyneuropathy, unspecified; G89.29 Other chronic pain; M54.5 Low back pain; K59.00 Constipation, unspecified; K29.70 Gastritis, unspecified, without bleeding; J47.9 Bronchiectasis, uncomplicated; I25.10 Atherosclerotic heart disease of native coronary artery without angina pectoris; F29 Unspecified psychosis not due to a substance or known physiological condition; R41.0 Disorientation, unspecified; E87.6 Hypokalemia; K44.9 Diaphragmatic hernia without obstruction or gangrene; J32.0 Chronic maxillary sinusitis; J32.2 Chronic ethmoidal sinusitis; R31.9 Hematuria, unspecified; W18.30XA Fall on same level, unspecified, initial encounter; Y92.89 Other specified places as the place of occurrence of the external cause
CPT/HCPCS: 36415; 36600; 70450-TC; 71045-TC; 74018; 76700-TC; 80048-TC; 80053-TC; 80076-TC; 80164-TC; 80202-TC; 81000-TC; 82306; 82553-TC; 82728-TC; 82746; 83540-TC; 83605-TC; 83735-TC; 84100-TC; 84439-TC; 84443-TC; 84484-TC; 85025-TC; 85730-TC; 87040-TC; 87070-TC; 87081-TC; 87086-TC; 90732; 92521; 92611-TC; 93307-TC; 94640-TC; A4216; A4606; C9113; J1650; J2060; J2185; J2405; J2543; J3370; J3475; J3480; J3490; J7030; J7040; J7050; J7060; Z7610

== ENCOUNTER 2019-05-12 12:27 | Inpatient (IN) | payer MEDICARE, MEDICAID ==
[~2019-05-12] VITALS: Ht 167.6 cm; Wt 66.7 kg
[~2019-05-12 12:27] MED LIST: ALEN70TA6 PO; AMLO10TA7 PO; ASPI-1169 PO; DOCU250C14 PO; DONE10TA44 PO; ERGO500014 PO; ESCI10TA PO; FINA5TAB11 PO; FOLI1TAB16 PO; FURO40TA5 PO; LOSA1TAB36 PO; MEMA10TA PO; OMEP20CA11 PO; POTA8TAB8 PO; TAMS0.4C34 PO; THIA50TA10 PO
--- NOTE | 2019-05-12 12:29 | NUR ---
[id number], C/O GI BLEED STARTED LAST NIGHT, PER GRAND DAUGHTER, NOTICED BROWNISH VOMITUS 1HR CYBER ANALYST. PT DENIES ABDOMINAL PAIN. TO ER BED 10, HOOKED TO MONITOR, CHANGED TO GOWN, PROVIDED W WARM BLANKET, BREATHING EVEN AND UNLABORED, AOx1, DR CADENA AT BEDSIDE
[2019-05-12] MEDS ORDERED: PANTOPRAZOLE 40 MG VIAL ONE (12:38)
[2019-05-12 12:52] LABS: BASOPHILS % (AUTO) 0.2 % (0.0-2.0); EOSINOPHILS % (AUTO) 1.7 % (0.0-6.0); HEMATOCRIT 40 % (39-51); HEMOGLOBIN 13.8 g/dL (13.5-17.5); LYMPHOCYTES # (AUTO) 1.1 /CMM (0.8-4.8); MEAN CORPUSCULAR HGB CONC 34 g/dl (31.0-36.0); MEAN CORPUSCULAR VOLUME 93 fL (80-96); MONOCYTES # (AUTO) 0.5 /CMM (0.1-1.30); NEUTROPHILS # (AUTO) 5.5 /CMM (1.8-8.9); NEUTROPHILS % (AUTO) 76.1 % (43.0-81.0); PLATELET COUNT (AUTO) 266 /CMM (150-450); RED BLOOD CELL COUNT(AUTO) 4.31 MIL/uL (4.5-6.0); WHITE BLOOD COUNT (AUTO) 7.2 K/uL (4.3-11.0)
[2019-05-12] MEDS ORDERED: PANTOPRAZOLE 40 MG VIAL IV ONE (13:00)
[2019-05-12 13:02] LABS: CALCIUM, SERUM 9.2 mg/dL (8.5-10.1); CARBON DIOXIDE 31 mmol/L (21-32); CHLORIDE 104 mmol/L (98-107); CREATININE 0.8 mg/dL (0.6-1.3); GLUCOSE 103 mg/dL (74-106); SODIUM SERUM 142 mmol/L (136-145); UREA NITROGEN, BLOOD 11 mg/dL (7-18)
[2019-05-12 13:08] LABS: ALANINE AMINOTRANSFERASE 31 U/L (12-78); ALBUMIN 3.6 g/dL (3.4-5.0); ALKALINE PHOSPHATASE 77 U/L (46-116); ASPARTATE AMINOTRANSFERASE 22 U/L (15-37); BILIRUBIN,DIRECT 0.3 mg/dL (0.0-0.2); BILIRUBIN,TOTAL 1.9 mg/dL (0.2-1.0); LIPASE 118 U/L (73-393); TOTAL PROTEIN, SERUM 7.7 g/dL (6.4-8.2)
--- NOTE | 2019-05-12 13:36 | NUR ---
TELE BED 115-2 GI BLEED, MARY
--- NOTE | 2019-05-12 13:57 | NUR ---
REPORT GIVEN TO BEVERLY GUTIERRES FOR OF TELE UNIT
--- NOTE | 2019-05-12 14:44 | NUR ---
REPORT GIVEN TO NE GUTIERRES OF TELE UNIT 311-2
[2019-05-12] MEDS ORDERED: IV D5/ 0.9% NACL 1,000 ML IV PRN (15:00)
[2019-05-12 15:10] VITALS: BP 146/70
--- NOTE | 2019-05-12 15:10 | NUR ---
CATALYST OPERATOREVP GLOBAL PRODUCT LEADERSHIP NOTE PATIENT ARRIVED VIA GURNEY FROM ER. PATIENT GRANDDAUGHTER IS PRESENT. PATIENT IS NON AMBULATORY AT THIS TIME. PATIENT WITH NO FACIAL GRIMACING NOTE. PATIENT JAPANESE SPEAKING AND IS ALERT AND ORIENTED X1. PATIENT BREATHING IS EVEN AND UNLABORED. PATIENT IN NO ACUTE DISTRESS. NO SOB NOTED. PATIENT ON CARDIAC MONITORING. PATIENT BED IS LOCKED AND IN LOWEST POSITION. CALL LIGHT WITHIN REACH. WILL CONTINUE TO MONITOR. MD MADE AWARE AND NOTIFIED.
[2019-05-12 16:00] VITALS: BP 143/69
[2019-05-12] MEDS ORDERED: ACETAMINOPHEN 325 MG/SUPP.RECT RC PRN (16:30)
[2019-05-12 16:32] LABS: BASOPHILS % (AUTO) 0.4 % (0.0-2.0); EOSINOPHILS % (AUTO) 1.4 % (0.0-6.0); HEMATOCRIT 37 % (39-51); HEMOGLOBIN 12.8 g/dL (13.5-17.5); LYMPHOCYTES # (AUTO) 0.9 /CMM (0.8-4.8); LYMPHOCYTES % (AUTO) 12.3 % (20.0-44.0); MEAN CORPUSCULAR HGB CONC 35 g/dl (31.0-36.0); MEAN CORPUSCULAR VOLUME 94 fL (80-96); MONOCYTES # (AUTO) 0.5 /CMM (0.1-1.30); MONOCYTES % (AUTO) 7.2 % (2.0-12.0); NEUTROPHILS # (AUTO) 5.8 /CMM (1.8-8.9); NEUTROPHILS % (AUTO) 78.7 % (43.0-81.0); PLATELET COUNT (AUTO) 246 /CMM (150-450); RED BLOOD CELL COUNT(AUTO) 3.96 MIL/uL (4.5-6.0); WHITE BLOOD COUNT (AUTO) 7.4 K/uL (4.3-11.0)
[2019-05-12] MEDS: IV D5/ 0.9% NACL 1,000 ML IV PRN (17:21)
--- NOTE | 2019-05-12 18:59 | NUR ---
MOBILE HOME MECHANIC CLOSING NOTE PATIENT IN BED RESTING COMFORTABLY. PATIENT IN NO ACUTE DISTRESS. NO SOB NOTED. PATIENT BREATHING IS EVEN AND UNLABORED BREATHING ON ROOM AIR SATURATING >95% SP02. PATIENT WITH NO FACIAL GRIMACING NOTED.IV INTACT. PATIENT ON CARDIAC MONITORING, SR WITH BIGEMINY/ MULTIFOCAL PVC'S HR 85. PATIENT WAS KEPT CLEAN, DRY, COMFORTABLE, AND REPOSITIONED. PATIENT EXTREMITIES OFFLOADED. PATIENT SAFETY PRECAUTIONS IN PLACE. PATIENT HOB SEMI FOWLERS. ORDERS CARRIED OUT BY MD. PATIENT BED IS LOCKED AND IN LOWEST POSITION. CALL LIGHT WITHIN REACH. WILL ENDORSE CARE TO PM SHIFT FOR ARELI.
--- NOTE | 2019-05-12 19:25 | NUR ---
CARE TRANSITION MANAGER OPENING NOTES: RECEIVED PT ON ROOM AIR WIT HOB ELEVATED AT 35 DEGREES. SON LATANYA AT BEDSIDE. PT IS A/OX1 AND IS BERMUDIAN SPEAKING ONLY. PT IS CONFUSED. PT ON TELE MONITOR AND READING SHOWS SR 84. PT HAS IV ON R AC #20G AND IS BEING INFUSED WITH IVD5NS AT 60ML/HR. BED ALARM ACTIVATED. BED KEPT IN LOW, LOCKED POSITION, AND SIDE RAILS X 2UP. WILL CONTINUE TO MONITOR PT.
[2019-05-12 20:00] VITALS: BP 107/50
--- NOTE | 2019-05-12 21:39 | NUR ---
PREPARATION OPERATOR NOTES: JADE OLSON AT BEDSIDE.
--- NOTE | 2019-05-12 22:17 | NUR ---
SAND WORKER NOTES: DR. HERNANDEZ AT BEDSIDE.
[2019-05-13] VITALS: BP 110/51
[2019-05-13 00:06] LABS: OCCULT BLOOD STOOL NEGATIVE (NEGATIVE)
[2019-05-13 04:00] VITALS: BP 104/53
[2019-05-13 06:33] LABS: ALBUMIN 3.2 g/dL (3.4-5.0); BILIRUBIN,DIRECT 0.2 mg/dL (0.0-0.2); BILIRUBIN,TOTAL 1.5 mg/dL (0.2-1.0); TOTAL PROTEIN, SERUM 6.7 g/dL (6.4-8.2)
[2019-05-13 06:34] LABS: BASOPHILS % (AUTO) 0.6 % (0.0-2.0); EOSINOPHILS % (AUTO) 5.5 % (0.0-6.0); HEMATOCRIT 35 % (39-51); HEMOGLOBIN 12.4 g/dL (13.5-17.5); LYMPHOCYTES # (AUTO) 1.1 /CMM (0.8-4.8); LYMPHOCYTES % (AUTO) 20.8 % (20.0-44.0); MEAN CORPUSCULAR HGB CONC 35 g/dl (31.0-36.0); MEAN CORPUSCULAR VOLUME 93 fL (80-96); MONOCYTES # (AUTO) 0.6 /CMM (0.1-1.30); MONOCYTES % (AUTO) 10.7 % (2.0-12.0); NEUTROPHILS # (AUTO) 3.3 /CMM (1.8-8.9); NEUTROPHILS % (AUTO) 62.4 % (43.0-81.0); PLATELET COUNT (AUTO) 235 /CMM (150-450); RED BLOOD CELL COUNT(AUTO) 3.76 MIL/uL (4.5-6.0); WHITE BLOOD COUNT (AUTO) 5.3 K/uL (4.3-11.0)
--- NOTE | 2019-05-13 06:49 | NUR ---
ADOPTION MANAGER CLOSING NOTES: ALL NEEDS WERE ATTENDED AND ANTICIPATED FOR. PT ASLEEP AT THIS TIME AND RESTING COMFORTABLY. NO SOB NOTED. NO S/S OF DISTRESS. PT TURNED AND REPOSITIONED Q2HRS. HOB ELEVATED AT 35 DEGREES AT ALL TIMES. PT ON TELE MONITOR AND READING SHOWS SR 68 WITH PVCS. PT HAS IV ON R AC #20G AND IS BEING INFUSED WITH IV D5NS AT 60ML/HR. BED ALARM ACTIVATED. BED KEPT IN LOW, LOCKED POSITION, AND SIDE RAILS X 2UP. WILL ENDORSE TO AM NURSE FOR ARELI.
[2019-05-13 07:07] LABS: ALANINE AMINOTRANSFERASE 27 U/L (12-78); ALBUMIN 3.2 g/dL (3.4-5.0); ALKALINE PHOSPHATASE 62 U/L (46-116); ASPARTATE AMINOTRANSFERASE 17 U/L (15-37); BILIRUBIN,TOTAL 1.5 mg/dL (0.2-1.0); CALCIUM, SERUM 8.6 mg/dL (8.5-10.1); CARBON DIOXIDE 27 mmol/L (21-32); CHLORIDE 106 mmol/L (98-107); CREATININE 0.8 mg/dL (0.6-1.3); GLUCOSE 91 mg/dL (74-106); MAGNESIUM 1.9 mg/dL (1.8-2.4); POTASSIUM 3.6 mmol/L (3.5-5.1); SODIUM SERUM 143 mmol/L (136-145); TOTAL PROTEIN, SERUM 6.7 g/dL (6.4-8.2); UREA NITROGEN, BLOOD 12 mg/dL (7-18)
[2019-05-13 07:13] LABS: FREE PSA 2.23 ng/mL (0.00-45); IRON, SERUM 49 ug/dl (50-175)
--- NOTE | 2019-05-13 07:15 | NUR ---
RN INITIAL NOTES PATIENT IN BED, ASLEEP BUT EASILY AROUSABLE. VERY CONFUSED. NO COMPLAINS OF ANY PAIN NOR SOB. HOB AT 35 DEGREES AT ALL TIMES PER ORDER. ON TELE MONITOR, SR. ON CLEAR LIQUIDS DIET. HAS A RIGHT AC #20 WITGH D5NS AT 60 ML/HR. US PELVIC AND ABD PENDING TO BE DONE TODAY. POSSIBLE EGD AND COLONOSCOPY TOMORROW PER GI. BED LOCKED AND IN LOWEST POSITION. CALL LIGHT WITHIN REACH. WILL CONT TO MONITOR
[2019-05-13 08:00] VITALS: BP 140/54
[2019-05-13] MEDS: NEXIUM 40 MG VIAL IV SCH ×2 (08:15→17:02)
[2019-05-13] MEDS ORDERED: NEXIUM 40 MG VIAL IV SCH (09:00)
--- NOTE | 2019-05-13 09:17 | NUR ---
RN NOTE CALLED DR. HERNANDEZ'S OFFICE TO GET THE PATIENT'S MED RECON FAXED OVER. TALKED TO AMAURY.
--- NOTE | 2019-05-13 10:00 | NUR ---
RN NOTE DR OLVERA AT BEDSIDE, PER MD PATIENT SEEMED VERY CALM. MORE INFORMATION CAME FROM THE AT BEDSIDE WELL. PER DR OLVERA, SHE WILL CONTACT DR HERNANDEZ REGARDING THIS PATIENT
[2019-05-13] MEDS: IV D5/ 0.9% NACL 1,000 ML IV PRN (10:07)
--- NOTE | 2019-05-13 10:22 | NUR ---
WOUND CARE CONSULT: PT PRESENTS WITH RT BUTTOCK DRY RED LESIONS AND SACRAL DRY BROWN LESION, PRESENT ON ADMISSION. PER PT'S BROWN SACRAL LESION HAS ALWAYS BEEN THERE. PT IS INCONTINENT. RECOMMENDATIONS MADE FOR SKIN PROTECTION. DISCUSSED WITH NURSING STAFF. WILL SEE PRN. LUGO IN AGREEMENT WITH PLAN OF CARE. Addendum: 05/13/19 at 1024 by JOSE FUNEZ WNDNU Amended: Links added.
[2019-05-13] MEDS ORDERED: Z GUARD REMEDY 2 OZ OINT TP PRN (10:30)
[2019-05-13] MEDS ORDERED: Z GUARD REMEDY 2 OZ OINT TP SCH (10:30)
--- NOTE | 2019-05-13 10:41 | NUR ---
CALLED DR HERNANDEZ'S OFFICE AGAIN, PER PATIENT IS NOT TAKING MEDS AT HOME. NOTHING TO RECONCILE.
--- NOTE | 2019-05-13 10:47 | NUR ---
SPOKE TO DR. HERNANDEZ'S OFFICE PER DYER AND WASHER PATIENT HAS NO MEDS, ALSO CONFIRM WITH GRAND DAUGHTER AT BEDSIDE WHILE AT ER PT. HAS NO MEDICATION.
--- NOTE | 2019-05-13 11:30 | NUR ---
RN NOTE WOUND CARE NURSE AND I, PRIMARY NURSE DECIDED TO PLACE A CONDOM CATH FOR THIS PATIENT, PATIENT IS INCONTINENT.
--- NOTE | 2019-05-13 15:03 | NUR ---
RN NOTE REMOVED CONDOM CATH, PATIENT KEEPS PULLING CONDOM OUT
--- NOTE | 2019-05-13 15:53 | NUR ---
RN NOTE PATIENT PULLED OUT HIS IV. REINSERTED A NEW ONE ON HIS RIGHT HAND #22. COVERED WITH MITTEN RESTRAINT
[2019-05-13 16:00] VITALS: BP 145/81
[2019-05-13 16:33] LABS: APPEARANCE,URINE CLEAR (CLEAR); BILIRUBIN,URINE NEGATIVE (NEGATIVE); BLOOD, URINE 1+ Ery/uL (NEGATIVE); COLOR,URINE YELLOW (YELLOW); KETONES,URINE NEGATIVE (NEGATIVE); LEUKOCYTE ESTERASE ,URINE TRACE (NEGATIVE); NITRITE, URINE NEGATIVE (NEGATIVE); PROTEIN,URINE NEGATIVE (NEGATIVE); UGLUCOSE NEGATIVE (NEGATIVE)
[2019-05-13 17:01] LABS: BACTERIA,URINE None seen /HPF (None Seen); SQUAMOUS EPITHELIAL CELL,UR Few /HPF (None Seen); WBC,URINE 0-2 /HPF (0-3)
--- NOTE | 2019-05-13 18:38 | NUR ---
RN CLOSING NOTE PATIENT IN BED, VERY CONFUSED. HOB AT 35 DEGREES AT ALL TIMES. ALL MEDS GIVEN. HAD 1X BM. HAS RIGHT HAND #22 WITH D5NS AT 60ML/HR. POSSIBLE EGD/COLONOSCOPY. PATIENT'S FAMILY HAS A LAST MINUTE REQUEST TO DC THE PATIENT. DR HERNANDEZ AND PRINTING SIGN MACHINE OPERATOR AWARE ABOUT THIS AND IS TRYING TO DC THE PATIENT TONIGHT OR TOMORROW. BED LOCKED AND IN LOWEST POSITION. CALL LIGHT WITHIN REACH. WILL ENDORSE TO NOC SHIFT FOR ARELI
--- NOTE | 2019-05-13 19:15 | NUR ---
RN PM OPENING NOTE BEDSIDE REPORT RECIEVED FROM NUZHAT GUTIERRES. PATIENT IN BED, VERY CONFUSED. HOB AT 35 DEGREES. HAND #22 WITH D5NS THAT IS CURRENTLY HEPLOCKED. SON KAY AT THE BEDSIDE POC REVIEWED QUESITONS CONCERNS ADDRESSED. PATIENT HAS BEEN DISCHARGED TO HOME WITH SCHEDULED PICKUP BETWEEN 9 AND 10 PM. BED LOCKED AND IN LOWEST POSITION. PATIENTS IN ROOM A PATIENT HERSELF AND SHE WILL ALSO BE DISCHARGING. PATIENT SON IN THE ROOM TO PICK HER UP.
--- NOTE | 2019-05-13 19:35 | NUR ---
DISCHARGE INSTRUCTIONS REVIEWED WITH SON/MERCHANDISER SEASONAL KAY AND PAPERS SIGNED. QUESTIONS CONCERNS ADDRESSED. REVIEWE EQUIPMENT WASHER TIME OF 9PM TO 10 PM WITH SON AND HE VERBALIZED UNDERSTANDING. STATES HE IS TAKING HIS MOTHER HOME AND WILL BE EXPECTING THE PATIENTS ARRIVAL TONIGHT.
--- NOTE | 2019-05-13 21:45 | NUR ---
FISH GIBSON REPORT GIVEN TO EMT KASSANDRA. THEM ABOUT THE PATIENT. PATIENT IS RETURNING HOME. AND PATIENT ASSISTED ON TO [facility] IN NO APPARENT DISTRESS. IV REMOVED FROM LEFT HAND #22 CATHETER INTACT NO S/S OF INFILTRATION OR COMPLICATIONS. CAREGIVER/SON KAY IS EXPECTING PATIENT AT HOME.
[2019-05-14] MEDS ORDERED: PANT40VI IV (08:16)
== END 2019-05-13 21:55 | disposition home health service (06) | DRG 378 ==
LOC: ER 12:29 → TELE 14:29 → MED 05-13 18:57
PROVIDERS: ADMIT Family Medicine; ATTEND Family Medicine
DX: K92.2 Gastrointestinal hemorrhage, unspecified (principal); R64 Cachexia; F05 Delirium due to known physiological condition; D63.8 Anemia in other chronic diseases classified elsewhere; E78.5 Hyperlipidemia, unspecified; E86.0 Dehydration; F02.80 Dementia in other diseases classified elsewhere, unspecified severity, without behavioral disturbance, psychotic disturbance, mood disturbance, and anxiety; K21.9 Gastro-esophageal reflux disease without esophagitis; K40.20 Bilateral inguinal hernia, without obstruction or gangrene, not specified as recurrent; B35.1 Tinea unguium; G30.9 Alzheimer's disease, unspecified; M81.0 Age-related osteoporosis without current pathological fracture; I10 Essential (primary) hypertension; I25.10 Atherosclerotic heart disease of native coronary artery without angina pectoris; Z79.82 Long term (current) use of aspirin; Z79.899 Other long term (current) drug therapy; Z95.5 Presence of coronary angioplasty implant and graft; Z91.81 History of falling; Z74.01 Bed confinement status; Z86.73 Personal history of transient ischemic attack (TIA), and cerebral infarction without residual deficits; N40.1 Benign prostatic hyperplasia with lower urinary tract symptoms; N39.498 Other specified urinary incontinence; Z86.59 Personal history of other mental and behavioral disorders; R15.9 Full incontinence of feces; G47.33 Obstructive sleep apnea (adult) (pediatric); E87.6 Hypokalemia; E83.39 Other disorders of phosphorus metabolism; F01.50 Vascular dementia, unspecified severity, without behavioral disturbance, psychotic disturbance, mood disturbance, and anxiety; I70.0 Atherosclerosis of aorta; E80.6 Other disorders of bilirubin metabolism
CPT/HCPCS: 36415; 71045-TC; 76700-TC; 76856-TC; 80048-TC; 80053-TC; 80076-TC; 81000-TC; 82247-TC; 82248-TC; 82272-TC; 82728-TC; 83540-TC; 83690-TC; 83735-TC; 84153-TC; 84154-TC; 84443-TC; 84484-TC; 85025-TC; 85730-TC; 86850-TC; 87081-TC; 97530-TC; A4349; C9113; G0378; J7042

== ENCOUNTER 2019-05-31 14:23 | Inpatient (IN) | payer MEDICARE, MEDICAID ==
[~2019-05-31] VITALS: Ht 167.6 cm; Wt 56.7 kg
[~2019-05-31 14:23] MED LIST changes: -ALEN70TA6 PO; -AMLO10TA7 PO; -ASPI-1169 PO; -DOCU250C14 PO; -DONE10TA44 PO; -ERGO500014 PO; -ESCI10TA PO; -FINA5TAB11 PO; -FOLI1TAB16 PO; -FURO40TA5 PO; -LOSA1TAB36 PO; -MEMA10TA PO; -OMEP20CA11 PO; +PANT40VI IV; -POTA8TAB8 PO; -TAMS0.4C34 PO; -THIA50TA10 PO
--- NOTE | 2019-05-31 14:35 | NUR ---
DR RILEY AT BEDSIDE FOR EVAL.
--- NOTE | 2019-05-31 14:50 | NUR ---
IV LINE STARTED BLOOD DRAWN AND SENT TO LAB.
--- NOTE | 2019-05-31 14:56 | NUR ---
RADIOLOGY AT BEDSIDE FOR CHEST XRAY.
[2019-05-31] MEDS ORDERED: PIPERACILLIN /TAZOBACTAM 3.375 G in IV D5W 50 ML IV ONE ×2 (15:00→16:00)
[2019-05-31] MEDS ORDERED: IV NS 0.9% 1,000 ML BAG IV ONE (15:00)
[2019-05-31 15:02] LABS: BASOPHILS % (AUTO) 0.3 % (0.0-2.0); HEMATOCRIT 40 % (39-51); LYMPHOCYTES # (AUTO) 0.6 /CMM (0.8-4.8); LYMPHOCYTES % (AUTO) 6.6 % (20.0-44.0); MEAN CORPUSCULAR HGB CONC 35 g/dl (31.0-36.0); MEAN CORPUSCULAR VOLUME 93 fL (80-96); MONOCYTES # (AUTO) 0.6 /CMM (0.1-1.30); MONOCYTES % (AUTO) 6.5 % (2.0-12.0); NEUTROPHILS # (AUTO) 7.8 /CMM (1.8-8.9); NEUTROPHILS % (AUTO) 86.6 % (43.0-81.0); PLATELET COUNT (AUTO) 456 /CMM (150-450); RED BLOOD CELL COUNT(AUTO) 4.31 MIL/uL (4.5-6.0); WHITE BLOOD COUNT (AUTO) 9.1 K/uL (4.3-11.0)
[2019-05-31 15:08] LABS: CARBON DIOXIDE 23 mmol/L (21-32); CHLORIDE 107 mmol/L (98-107); CREATININE 1.5 mg/dL (0.6-1.3); GLUCOSE 196 mg/dL (74-106); POTASSIUM 3.4 mmol/L (3.5-5.1); SODIUM SERUM 145 mmol/L (136-145); UREA NITROGEN, BLOOD 70 mg/dL (7-18)
[2019-05-31 15:08] LABS: APPEARANCE,URINE Slightly Cloudy (CLEAR); BILIRUBIN,URINE SMALL (NEGATIVE); BLOOD, URINE Moderate Ery/uL (NEGATIVE); COLOR,URINE Yellow (YELLOW); KETONES,URINE Negative (NEGATIVE); LEUKOCYTE ESTERASE ,URINE Negative (NEGATIVE); NITRITE, URINE Negative (NEGATIVE); PROTEIN,URINE 100 mg/dl (NEGATIVE); UGLUCOSE Negative (NEGATIVE)
[2019-05-31 15:14] LABS: ALANINE AMINOTRANSFERASE 64 U/L (12-78); ALBUMIN 3.1 g/dL (3.4-5.0); ALKALINE PHOSPHATASE 87 U/L (46-116); ASPARTATE AMINOTRANSFERASE 61 U/L (15-37); BILIRUBIN,DIRECT 0.5 mg/dL (0.0-0.2); BILIRUBIN,TOTAL 1.4 mg/dL (0.2-1.0); TOTAL PROTEIN, SERUM 7.8 g/dL (6.4-8.2)
[2019-05-31 15:52] LABS: BACTERIA,URINE 2+ /HPF (None Seen); SQUAMOUS EPITHELIAL CELL,UR None Seen /HPF (None Seen); WBC,URINE 0-2 /HPF (0-3)
--- NOTE | 2019-05-31 15:54 | NUR ---
SECOND ZOSYN IS A DOUBLE ORDER. NON ADMINISTERED.
--- NOTE | 2019-05-31 16:18 | NUR ---
MARY SPEAKING WITH OSVALDO
--- NOTE | 2019-05-31 16:29 | NUR ---
Paged [facility] -- general manager road production is Dr Bell.
[2019-05-31] MEDS ORDERED: ACETAMINOPHEN 650 MG/SUPP.RECT RC ONE ×2 (16:30→16:45)
--- NOTE | 2019-05-31 16:48 | NUR ---
MARTIN KAY LEFT CONTACT # [phone]
--- NOTE | 2019-05-31 16:55 | NUR ---
REPORT GIVEN TO SHAWN GUTIERRES. AWAITING TRANSFER TO FLOOR.
--- NOTE | 2019-05-31 17:50 | NUR ---
FIGHTING VEHICLE SYSTEMS MAINTAINERCONSTRUCTION COORDINATOR NOTE RECEIVED PATIENT A/O X2. PATIENT USES GESTURES TO AGREE IF HE CAN COMPREHEND. PATIENT ON NC WITH 2L OF O2. PATIENT HAS SINUS RHYTHM. PATIENT LUNGS ARE CLEAR AND NON-LABORED. HAS A RT IV ACCESS ON WRIST WITH NS RUNNING AT 75ML/HR. SKIN IS INTACT. PATIENT SHOWS NO SIGNS OF DISTRESS OR DIFFICULTY BREATHING. WILL CONTINUE TO MONITOR PATIENT.
[2019-05-31] MEDS ORDERED: ACETAMINOPHEN 325 MG TABLET PO PRN (18:00)
[2019-05-31] MEDS ORDERED: MAG HYDROX/AL HYDROX/SIMETH 30 ML UDC PO PRN (18:00)
[2019-05-31] MEDS ORDERED: ONDANSETRON HCL/PF 4 MG/2 ML VIAL IVP PRN (18:00)
[2019-05-31] MEDS ORDERED: MAGNESIUM HYDROXIDE 30 ML UDC PO PRN (18:00)
[2019-05-31] MEDS ORDERED: HYDROCODONE/APAP 5/325MG 1 EACH TABLET PO PRN (18:00)
[2019-05-31] MEDS ORDERED: Z GUARD REMEDY 2 OZ OINT TP PRN (18:00)
[2019-05-31] MEDS ORDERED: FEE PK DOSING 1 MIN EA MC ONE ×2 (18:12→18:14)
[2019-05-31] MEDS: IV NS 0.9% 1,000 ML IV PRN (18:24)
--- NOTE | 2019-05-31 19:00 | NUR ---
RN NOTES SPOKE TO MARTIN CEJA, INFORMED ON THE PLAN OF CARE. ASKED LATER ABOUT CODE STATUS, WISHES TO PUT PATIENT FULL CODE. INFORMED AND OBTAINED ORDER FOR. ORDER NOTED AND CARRIED OUT
--- NOTE | 2019-05-31 19:30 | NUR ---
POUNCING LATHE OPERATOR CLOSING NOTES HAND OFF REPORT TO INCOMING NIGHT RN. PATIENT SHOWS NO SIGN OF DISTRESS OR SOB. ALL SAFETY MEASURE ARE APPLIED. CALL LIGHT WITHIN IN REACH, SIDE RAILS UP X2.
--- NOTE | 2019-05-31 19:30 | NUR ---
ACCOUNTING ASSISTANT OPENING NOTES RECEIVED PATIENT SLEEPING, AROUSABLE TO TOUCH. PATIENT A/O X1, TRYING TO REMOVE NASAL CANNULA, HOWEVER DISTRACTABLE AND STOPS WHEN TOLD TO. ON TELE MONITOR SR WITH HR 90S. PATIENT ON OXYGEN 2L VIA NC, NO SOB OR CARDIAC/RESPIRATORY DISTRESS NOTED. IV SITE ON RIGHT FOREARM 18G, FLUSHING AND PATENT, WITH NS RUNNING AT 75ML/HR, NO INFILTRATION NOTED. SAFETY MEASURES IN PLACE; BED LOCKED AND IN LOWEST POSITION, HOB ELEVATED, SIDE RAILS UP X2, CALL LIGHT WITHIN REACH. WILL CONTINUE TO MONITOR PATIENT.
[2019-05-31 20:00] VITALS: BP 112/60
[2019-05-31] MEDS: VANCOMYCIN 0.75 GM in IV D5W 250 ML IV SCH (20:01)
[2019-05-31] MEDS: ZOSYN IVPB 2.25 G in IV D5W 50ml IV SCH (21:04)
[2019-06-01] VITALS: BP 126/48
[2019-06-01] MEDS: ZOSYN IVPB 2.25 G in IV D5W 50ml IV SCH ×4 (03:08→21:32)
[2019-06-01 04:00] VITALS: BP 136/74
[2019-06-01] MEDS: IV NS 0.9% 1,000 ML IV PRN (06:49)
--- NOTE | 2019-06-01 07:29 | NUR ---
DELI WORKER CLOSING NOTES NO ACUTE CHANGES THROUGHOUT SHIFT. PATIENT NPO UNTIL SWALLOW EVAL DONE. PATIENT ON OXYGEN 2L VIA NC, NO SOB OR CARDIAC/RESPIRATORY DISTRESS NOTED. IV SITE ON RIGHT FOREARM 18G, FLUSHING AND PATENT, WITH NS RUNNING AT 75ML/HR, NO INFILTRATION NOTED. REPOSITIONED Q2H. ALL MD ORDERS ATTENDED. SAFETY MEASURES IN PLACE; BED LOCKED AND IN LOWEST POSITION, HOB ELEVATED, SIDE RAILS UP X2, CALL LIGHT WITHIN REACH. ENDORSED TO AM RN FOR ARELI.
--- NOTE | 2019-06-01 07:30 | NUR ---
BATCH RECORDS CLERK AM NOTES RECEIVED PATIENT SLEEPING, AROUSES TO TOUCH. LETHARGIC, PATIENT A/O X1, REMOVES NASAL CANNULA, BUT STOPS WHEN TOLD TO. ON 2L O2 VIA NASAL CANULA, NO SOB, NO DISTRESS, ON TELE MONITOR SR HR 73. NO SIGNS OF PAIN.RFA IV SITE 18G, WITH NS RUNNING AT 75ML/HR, SITE CLEAR. NO SKIN ISSUES. NPO FOR NOW UNTIL SWALLOW EVAL. SAFETY MEASURES IN PLACE; BED LOCKED AND IN LOWEST POSITION, HOB ELEVATED, SIDE RAILS UP X2, CALL LIGHT WITHIN REACH. WILL CONTINUE TO MONITOR PATIENT.
[2019-06-01 08:00] VITALS: BP 156/69
[2019-06-01] MEDS: FAMOTIDINE/PF INJ 20 MG/2 ML VIAL IV SCH ×2 (08:52→21:32)
[2019-06-01] MEDS ORDERED: PANTOPRAZOLE 40 MG VIAL IV SCH (09:00)
[2019-06-01] MEDS ORDERED: IV NS 0.9% 1,000 ML IV PRN (09:19)
[2019-06-01 09:27] LABS: BASOPHILS % (AUTO) 0.1 % (0.0-2.0); EOSINOPHILS % (AUTO) 0.5 % (0.0-6.0); HEMATOCRIT 37 % (39-51); HEMOGLOBIN 12.7 g/dL (13.5-17.5); LYMPHOCYTES # (AUTO) 0.5 /CMM (0.8-4.8); LYMPHOCYTES % (AUTO) 6.6 % (20.0-44.0); MEAN CORPUSCULAR HGB CONC 34 g/dl (31.0-36.0); MEAN CORPUSCULAR VOLUME 94 fL (80-96); MONOCYTES # (AUTO) 0.5 /CMM (0.1-1.30); MONOCYTES % (AUTO) 6.7 % (2.0-12.0); NEUTROPHILS # (AUTO) 6.8 /CMM (1.8-8.9); NEUTROPHILS % (AUTO) 86.1 % (43.0-81.0); PLATELET COUNT (AUTO) 320 /CMM (150-450); RED BLOOD CELL COUNT(AUTO) 3.95 MIL/uL (4.5-6.0); WHITE BLOOD COUNT (AUTO) 7.9 K/uL (4.3-11.0)
--- NOTE | 2019-06-01 09:30 | NUR ---
EXERCISE EQUIPMENT SPECIALIST NOTES DUE MEDS GIVEN
[2019-06-01 09:37] LABS: CALCIUM, SERUM 8.7 mg/dL (8.5-10.1); CREATININE 1.3 mg/dL (0.6-1.3); MAGNESIUM 2.4 mg/dL (1.8-2.4); POTASSIUM 3.4 mmol/L (3.5-5.1)
[2019-06-01 10:31] LABS: BAND % (MANUAL) 1 % (0.0-5.0); EOSINOPHILS % (MANUAL) 1 % (0-4); LYMPHOCYTES % (MANUAL) 13 % (16-48); MONOCYTES % (MANUAL) 7 % (0-11.0); NEUTROPHILS % (MANUAL) 78 (42-76)
[2019-06-01] MEDS: IV 1/2NS 1000 ML 1,000 ML IV PRN (11:37)
[2019-06-01 12:00] VITALS: BP 157/74
[2019-06-01] MEDS: VANCOMYCIN 0.75 GM in IV D5W 250 ML IV SCH (13:21)
[2019-06-01 16:00] VITALS: BP 136/69
--- NOTE | 2019-06-01 18:30 | NUR ---
SQL DATABASE ADMINISTRATOR NOTES APPLIED SOFT WRIST RESTRAINT BILATERAL, PATIENT PULLING ALL LINES AND ATTEMPTING TO GET OUT OF BED.
--- NOTE | 2019-06-01 19:15 | NUR ---
PIPE FITTER WELDING OPENING NOTES RECEIVED PATIENT IN BED AWAKE, A/O X1, VERY CONFUSED. ON OXYGEN 2L VIA NASAL CANULA, NO SOB OR RESPIRATORY DISTRESS NOTED. ON TELE MONITOR SR HR 80S. IV SITE RFA 18G, WITH 1/2 NS RUNNING AT 100ML/HR, SITE C/D/I. NO SKIN ISSUES. NPO FOR NOW UNTIL SWALLOW EVAL DONE. ON BILATERAL SOFT WRIST RESTRAINTS NOTED, PER REPORT PATIENT TRYING TO GET OUT OF BED AND PULLING LINES. SAFETY MEASURES IN PLACE; BED LOCKED AND IN LOWEST POSITION, HOB ELEVATED, SIDE RAILS UP X3, CALL LIGHT WITHIN REACH. WILL CONTINUE TO MONITOR PATIENT CLOSELY.
--- NOTE | 2019-06-01 19:41 | NUR ---
HHA NOTES ALL NEEDS MET, RESTRAINT RELEASED AND CHECKED EVERY 2 HOURS, TURNED AND REPOSITIONED Q 2 HOURS, PM CARE DONE EARLIER. RESTING COMFORTABLY. NOT IN ANY DISTRESS. ENDORSED TO NEXT SHIFT FOR ARELI.
[2019-06-01 20:00] VITALS: BP 137/69
[2019-06-02] VITALS: BP 108/62
[2019-06-02] MEDS: IV 1/2NS 1000 ML 1,000 ML IV PRN ×2 (01:10→15:11)
[2019-06-02] MEDS: ZOSYN IVPB 2.25 G in IV D5W 50ml IV SCH ×4 (03:17→21:12)
[2019-06-02 04:00] VITALS: BP 136/68
[2019-06-02 06:30] LABS: BASOPHILS % (AUTO) 0.2 % (0.0-2.0); EOSINOPHILS % (AUTO) 1.9 % (0.0-6.0); HEMATOCRIT 37 % (39-51); HEMOGLOBIN 12.3 g/dL (13.5-17.5); LYMPHOCYTES # (AUTO) 0.7 /CMM (0.8-4.8); LYMPHOCYTES % (AUTO) 9.9 % (20.0-44.0); MEAN CORPUSCULAR HGB CONC 33 g/dl (31.0-36.0); MEAN CORPUSCULAR VOLUME 95 fL (80-96); MONOCYTES # (AUTO) 0.7 /CMM (0.1-1.30); NEUTROPHILS # (AUTO) 5.6 /CMM (1.8-8.9); PLATELET COUNT (AUTO) 290 /CMM (150-450); RED BLOOD CELL COUNT(AUTO) 3.88 MIL/uL (4.5-6.0); WHITE BLOOD COUNT (AUTO) 7.1 K/uL (4.3-11.0)
[2019-06-02 06:52] LABS: ALBUMIN 2.5 g/dL (3.4-5.0); BILIRUBIN,TOTAL 1.3 mg/dL (0.2-1.0); MAGNESIUM 2.4 mg/dL (1.8-2.4); PHOSPHORUS 3.1 mg/dL (2.5-4.9); POTASSIUM 3.3 mmol/L (3.5-5.1); TOTAL PROTEIN, SERUM 6.6 g/dL (6.4-8.2)
--- NOTE | 2019-06-02 07:00 | NUR ---
GLUE SPREADER CLOSING NOTES PATIENT IN BED AWAKE, A/O X1, CONFUSED. NO ACUTE CHANGES THROUGHOUT SHIFT. ON OXYGEN 2L VIA NASAL CANULA, NO SOB OR RESPIRATORY DISTRESS NOTED. ON TELE MONITOR SR HR 80S. IV SITE RFA 18G, WITH 1/2 NS RUNNING AT 100ML/HR, SITE C/D/I. NPO FOR NOW UNTIL SWALLOW EVAL DONE PER MD ORDER. ON BILATERAL SOFT WRIST RESTRAINTS NOTED, PATIENT TRYING TO GET OUT OF BED AND PULLING LINES. SAFETY MEASURES IN PLACE; BED LOCKED AND IN LOWEST POSITION, HOB ELEVATED, SIDE RAILS UP X3, CALL LIGHT WITHIN REACH. ENDORSED TO AM RN FOR ARELI.
--- NOTE | 2019-06-02 07:15 | NUR ---
RN INITIAL NOTE PATIENT IN BED, AWAKE AND VERY CONFUSED, WAS TALKING TO ME IN A DIFFERENT LANGUAGE. ON 2L NC, NO SIGNS OF ANY SOB NOR PAIN AT THIS TIME. ON TELE MONITOR, SR. HAS BILATERAL SOFT RESTRAINTS TO BE RENEWED AT 1830. HAS RIGHT FA WITH HALF NS RUNNING AT 100 ML/HR. BED LOCKED AND IN LOWEST POSITION. CALL LIGHT WITHIN REACH. WILL CONT TO MONITOR
[2019-06-02 07:26] LABS: BAND % (MANUAL) 1 % (0.0-5.0); LYMPHOCYTES % (MANUAL) 9 % (16-48); MONOCYTES % (MANUAL) 10 % (0-11.0); NEUTROPHILS % (MANUAL) 80 (42-76)
[2019-06-02 08:00] VITALS: BP 134/65
[2019-06-02] MEDS: VANCOMYCIN 0.75 GM in IV D5W 250 ML IV SCH ×2 (08:19→19:45)
[2019-06-02] MEDS: FAMOTIDINE/PF INJ 20 MG/2 ML VIAL IV SCH ×2 (08:22→21:11)
[2019-06-02] MEDS: POTASSIUM CL. PREMIX PERIPHER. 50 ML IV SCH ×4 (09:41→16:02)
[2019-06-02 12:00] VITALS: BP 108/67
[2019-06-02 16:00] VITALS: BP 127/62
--- NOTE | 2019-06-02 19:00 | NUR ---
RECEIVED PATIENT IN NO ACUTE DISTRESS IN BED. PATIENT IS A/O X 1 WITH PERIODS OF CONFUSION. PATIENT IS ON O2 VIA NASAL CANNULA AT 2LPM AND TOLERATING WELL. PATIENT IS ON TELEMETRY WITH SR ON THE MONITOR. PATIENT NOT C/O ANY SHORTNESS OF BREATH, DIFFICULTY BREATHING OR PAIN AT THIS TIME. PATIENT HAS LEFT HAND 22G THAT IS CLEAN DRY INTACT AND PATENT WITH 1/2 NS @ 100ML/HR AND TOLERATING WELL. BED IN LOW LOCK POSITION WITH RIALS UP X 2. CALL LIGHT WITHIN REACH AND ALL SAFETY MEASURES ENSURED AND CARRIED OUT. WILL CONTINUE TO MONITOR PATIENT.
--- NOTE | 2019-06-02 19:14 | NUR ---
RN CLOSING NOTE PATIENT IN BED, AWAKE AND VERY CONFUSED. CAREGIVER AT BEDSIDE. NO SIGNS OF ANY PAIN NOR SOB AT THIS TIME. HAS BILATERAL SOFT RESTRAINTS, RENEWED AT 1830. ALL MEDS GIVEN. BED LOCKED AND IN LOWEST POSITION. CALL LIGHT WITHIN REACH. ENDORSED TO NOC SHIFT FOR ARELI
[2019-06-02 20:29] VITALS: BP 111/47
[2019-06-03] VITALS: BP 111/66
[2019-06-03] MEDS ORDERED: IV D5/0.45 NACL 1,000 ML IV ONE
[2019-06-03 04:00] VITALS: BP 108/66
[2019-06-03] MEDS: ZOSYN IVPB 2.25 G in IV D5W 50ml IV SCH ×4 (04:13→22:22)
[2019-06-03 06:25] LABS: BASOPHILS % (AUTO) 0.2 % (0.0-2.0); EOSINOPHILS % (AUTO) 3.5 % (0.0-6.0); HEMATOCRIT 35 % (39-51); LYMPHOCYTES # (AUTO) 0.7 /CMM (0.8-4.8); MEAN CORPUSCULAR HGB CONC 34 g/dl (31.0-36.0); MEAN CORPUSCULAR VOLUME 93 fL (80-96); MONOCYTES # (AUTO) 0.6 /CMM (0.1-1.30); MONOCYTES % (AUTO) 7.7 % (2.0-12.0); NEUTROPHILS # (AUTO) 6.3 /CMM (1.8-8.9); NEUTROPHILS % (AUTO) 79.6 % (43.0-81.0); PLATELET COUNT (AUTO) 279 /CMM (150-450); RED BLOOD CELL COUNT(AUTO) 3.76 MIL/uL (4.5-6.0)
--- NOTE | 2019-06-03 06:35 | NUR ---
PATIENT REMAINS IN NO ACUTE DISTRESS IN BED. PATIENT DID NOT HAVE ANY SIGNIFICANT CHANGE IN CONDITION DURING SHIFT. ALL NEEDS MET, ALL ORDERS CARRIED OUT. WILL ENDORSE CARE TO AM RN FOR CONTINUITY OF CARE.
[2019-06-03 06:37] LABS: CALCIUM, SERUM 8.6 mg/dL (8.5-10.1); POTASSIUM 3.1 mmol/L (3.5-5.1)
--- NOTE | 2019-06-03 07:00 | NUR ---
RN NOTES RECEIVED PT ON BED, A/Ox1, CONFUSED, ON 2L O2 N/C , NO SOB NOTED, ON TELE SR , CONDOM CATH DRINING TO GRAVITY WITH YELLOW URINE, D5 1/2 NS AT 75CC/HR RUNNING VIA L HAND IV SITE G 22 ,SITE CLEAN, DRY AND INTACT, SR UP x3, CALL LIGHT WITHIN EASY REACH, BED LOCKED AND IN LOWEST POSITION, CONTINUE TO MONITOR.
[2019-06-03 08:00] VITALS: BP 127/67
[2019-06-03] MEDS: FAMOTIDINE/PF INJ 20 MG/2 ML VIAL IV SCH ×2 (08:16→22:23)
[2019-06-03] MEDS: VANCOMYCIN 0.75 GM in IV D5W 250 ML IV SCH ×2 (08:16→20:26)
[2019-06-03 08:42] LABS: BAND % (MANUAL) 1 % (0.0-5.0); EOSINOPHILS % (MANUAL) 4 % (0-4); LYMPHOCYTES % (MANUAL) 7 % (16-48); MONOCYTES % (MANUAL) 7 % (0-11.0); NEUTROPHILS % (MANUAL) 81 (42-76)
[2019-06-03] MEDS: POTASSIUM CHLORIDE 20 MEQ POWDER PACKET PO SCH ×2 (10:29→11:18)
[2019-06-03] MEDS: POTASSIUM CHLORIDE 20 MEQ TAB.PRT.SR PO SCH ×2 (12:08→13:03)
--- NOTE | 2019-06-03 13:00 | NUR ---
RN NOTES PT AGITATED AT THIS , PULLING AND PUSHING ON HIS IV LINES , FAMILY AT THE BEDSIDE, CONTINUE TO MONITOR .
[2019-06-03 16:00] VITALS: BP 127/57
--- NOTE | 2019-06-03 18:18 | NUR ---
RN NOTES PT STILL AGITATED, SUPPORTIVE FAMILY AT THE BEDSIDE, VSS STABLE , SR UP x3, CALL LIGHT WITHIN EASY REACH, BED LOCKED AND IN LOWEST POSITION, WILL ENDORSE TO STRANDING SUPERVISOR NURSE FOR CONTINUITY OF CARE .
[2019-06-03 20:00] VITALS: BP 113/94
--- NOTE | 2019-06-03 20:00 | NUR ---
RN NOTE CALLED DR MAXWELL TO NOTIFY OF PATIENT'S TEMEPRATURE 100F, DR MAXWELL IS OUT OF TOWN AND THERE IS NO COVERING PHYSICIAN, CALLED RICARDO Vigil NP, SHE SAID THAT SHE WILL COBER THIS PATIENT FOR TONIGHT AND WILL FOLLOW UP IN THE MORNING, CHARGE NURSE LUIS GONZALES GAVE AN ORDER OF TYLENOL SUPPOSIT 650MG RECTALLY Q 6 HOURS
[2019-06-04] VITALS: BP 123/94
--- NOTE | 2019-06-04 00:28 | NUR ---
DESTINI RN NOTES RECEIVED PT REPORT FROM NENITA CARBONE TRANSFER OF CARE. PATIENT IS ON BED, A/Ox1, CONFUSED, ON 2L O2 N/C , NO SOB NOTED, ON TELE MONITOR SR , PATIENT PULLED OUT L HAND IV G 22 ,SR UP x3, CALL LIGHT WITHIN EASY REACH, BED LOCKED AND IN LOWEST POSITION, WILL CONTINUE TO MONITOR.
--- NOTE | 2019-06-04 00:37 | NUR ---
RN NOTE REPORT WAS PROVIDED TO NURSE, PATIENT IS STABLE
[2019-06-04 04:00] VITALS: BP 124/69
[2019-06-04] MEDS: ZOSYN IVPB 2.25 G in IV D5W 50ml IV SCH ×4 (04:53→23:27)
--- NOTE | 2019-06-04 04:54 | NUR ---
rn notes patient pulled his iv line on left hand. multiple nurses tried to start an iv without being able to start one. finally charge account identification clerk from [facility] started iv line on right hand [id number]. will start Zosyn antibiotic at 0450.
[2019-06-04 07:27] LABS: BASOPHILS % (AUTO) 0.2 % (0.0-2.0); EOSINOPHILS % (AUTO) 3.3 % (0.0-6.0); HEMATOCRIT 33 % (39-51); HEMOGLOBIN 11.3 g/dL (13.5-17.5); LYMPHOCYTES # (AUTO) 0.6 /CMM (0.8-4.8); LYMPHOCYTES % (AUTO) 7.7 % (20.0-44.0); MEAN CORPUSCULAR HGB CONC 34 g/dl (31.0-36.0); MEAN CORPUSCULAR VOLUME 93 fL (80-96); MONOCYTES # (AUTO) 0.5 /CMM (0.1-1.30); MONOCYTES % (AUTO) 6.4 % (2.0-12.0); NEUTROPHILS # (AUTO) 6.6 /CMM (1.8-8.9); NEUTROPHILS % (AUTO) 82.4 % (43.0-81.0); PLATELET COUNT (AUTO) 286 /CMM (150-450); RED BLOOD CELL COUNT(AUTO) 3.55 MIL/uL (4.5-6.0)
[2019-06-04 07:52] LABS: CALCIUM, SERUM 8.8 mg/dL (8.5-10.1); CREATININE 0.8 mg/dL (0.6-1.3); MAGNESIUM 2.1 mg/dL (1.8-2.4); PHOSPHORUS 2.8 mg/dL (2.5-4.9); POTASSIUM 3.3 mmol/L (3.5-5.1)
[2019-06-04 08:00] VITALS: BP 118/49
[2019-06-04] MEDS: FAMOTIDINE/PF INJ 20 MG/2 ML VIAL IV SCH ×2 (08:32→20:39)
[2019-06-04] MEDS: VANCOMYCIN 0.75 GM in IV D5W 250 ML IV SCH ×2 (08:32→20:39)
[2019-06-04] MEDS: POTASSIUM CHLORIDE 20 MEQ TAB.PRT.SR PO SCH ×3 (09:35→12:21)
[2019-06-04 16:00] VITALS: BP 102/55
[2019-06-04 20:00] VITALS: BP 129/76
[2019-06-04 20:01] VITALS: BP 127/79
[2019-06-05 04:00] VITALS: BP 120/73
[2019-06-05] MEDS ORDERED: IV 10% DEXTROSE 1,000 ML IV PRN (04:30)
[2019-06-05] MEDS ORDERED: PROCHLORPERAZINE EDISYLATE 10 MG/2 ML VIAL IM PRN (04:30)
[2019-06-05] MEDS: ZOSYN IVPB 2.25 G in IV D5W 50ml IV SCH ×3 (06:11→18:04)
[2019-06-05 07:11] LABS: BASOPHILS % (AUTO) 0.5 % (0.0-2.0); EOSINOPHILS % (AUTO) 4.4 % (0.0-6.0); HEMATOCRIT 29 % (39-51); HEMOGLOBIN 10.2 g/dL (13.5-17.5); LYMPHOCYTES # (AUTO) 0.7 /CMM (0.8-4.8); LYMPHOCYTES % (AUTO) 8.4 % (20.0-44.0); MEAN CORPUSCULAR HGB CONC 35 g/dl (31.0-36.0); MEAN CORPUSCULAR VOLUME 92 fL (80-96); MONOCYTES # (AUTO) 0.5 /CMM (0.1-1.30); MONOCYTES % (AUTO) 5.5 % (2.0-12.0); NEUTROPHILS # (AUTO) 7.2 /CMM (1.8-8.9); NEUTROPHILS % (AUTO) 81.2 % (43.0-81.0); PLATELET COUNT (AUTO) 274 /CMM (150-450); RED BLOOD CELL COUNT(AUTO) 3.17 MIL/uL (4.5-6.0); WHITE BLOOD COUNT (AUTO) 8.9 K/uL (4.3-11.0)
--- NOTE | 2019-06-05 07:15 | NUR ---
MS RN OPENING NOTE RECEIVED REPORT FROM [facility] SHIFT NURSE. PT ASLEEP IN BED, ON 02 VIA NC 2LMIN, RESPIRATIONS EASY AND UNLABORED, NO SIGNS OF RESPIRATORY DISTRESS NOTED. BILATERAL SOFT WRIST RESTRAINTS REMOVED, CHECKED SKIN INTEGRITY AND FOR CIRCULATION AND REAPPLIED. BED IN LOW POSITION, LOCKED, CALL LIGHT WITHIN REACH.
[2019-06-05 07:39] LABS: CALCIUM, SERUM 7.7 mg/dL (8.5-10.1); CREATININE 0.9 mg/dL (0.6-1.3); PHOSPHORUS 3.3 mg/dL (2.5-4.9); POTASSIUM 3.4 mmol/L (3.5-5.1)
[2019-06-05] MEDS: VANCOMYCIN 0.75 GM in IV D5W 250 ML IV SCH ×2 (07:57→20:48)
[2019-06-05 08:00] VITALS: BP 121/61
[2019-06-05] MEDS: FAMOTIDINE/PF INJ 20 MG/2 ML VIAL IV SCH ×2 (09:05→20:52)
[2019-06-05] MEDS: POTASSIUM CHLORIDE 20 MEQ TAB.PRT.SR PO SCH ×2 (10:04→11:13)
[2019-06-05 12:00] VITALS: BP 126/64
[2019-06-05 16:00] VITALS: BP 129/53
--- NOTE | 2019-06-05 19:21 | NUR ---
PT IN STABLE CONDITION, PROVIDED SAFETY AND COMFORT TO PT THROUGHOUT SHIFT. ENDORSE TO NOC SHIFT NURSE.
[2019-06-05 20:00] VITALS: BP 107/56
--- NOTE | 2019-06-05 20:00 | NUR ---
MS RN NOTES RECEIVED PTS IN BED AWAKE AND RESPONSIVE , NO SOB NO DISTRESS NOTED, ON 2 LITERS OF 02 VIA NC SATING 96% V/S STABLE AFEBRILE ,ALL NEEDS ATTENDED TOO CALL LIGHT WITHIN REACH DUE MEDS GIVEN A ORDERED , PTS ON BILATERAL RESTRAINT TO PREVENT FROM PULLING INVASIVE TUBINGS , TURNED AND REPOSITION Q 2 HRS AND PRN , HOB ELEVATED FOR ASPIRATION PRECAUTION , KEEP PTS CLEAN DRY AND COMFORTABLE , BED IS LOCKED AND IN LOW POSITION FOR SAFETY KEPT PTS CLEAN DRY AND COMFORTABLE WILL CONTINUE TO MONITOR PTS.
[2019-06-06] MEDS: ZOSYN IVPB 2.25 G in IV D5W 50ml IV SCH ×3 (00:41→12:05)
[2019-06-06 04:00] VITALS: BP 137/61
--- NOTE | 2019-06-06 07:19 | NUR ---
ms rn notes pts in bed awake and responsive . no sob no distress noted , v/s stable afebrile .will endorse to rn day shift for continuity of care.
--- NOTE | 2019-06-06 07:25 | NUR ---
MS RN OPENING NOTE RECEIVED REPORT FROM NOC SHIFT NURSE. PT ASLEEP IN BED, ON 02 VIA NC 2L/MIN, SATURATING WELL, RESPIRATIONS EASY AND UNLABORED, NO SIGNS OF RESPIRATORY DISTRESS NOTED. BED IN LOW POSITION, LOCKED, CALL LIGHT PLACED WITHIN REACH.
[2019-06-06 07:54] LABS: BASOPHILS % (AUTO) 0.3 % (0.0-2.0); EOSINOPHILS % (AUTO) 4.4 % (0.0-6.0); HEMATOCRIT 30 % (39-51); HEMOGLOBIN 10.4 g/dL (13.5-17.5); LYMPHOCYTES # (AUTO) 0.6 /CMM (0.8-4.8); LYMPHOCYTES % (AUTO) 6.8 % (20.0-44.0); MEAN CORPUSCULAR HGB CONC 34 g/dl (31.0-36.0); MEAN CORPUSCULAR VOLUME 93 fL (80-96); MONOCYTES # (AUTO) 0.4 /CMM (0.1-1.30); MONOCYTES % (AUTO) 4.7 % (2.0-12.0); NEUTROPHILS # (AUTO) 7.1 /CMM (1.8-8.9); NEUTROPHILS % (AUTO) 83.8 % (43.0-81.0); PLATELET COUNT (AUTO) 284 /CMM (150-450); RED BLOOD CELL COUNT(AUTO) 3.27 MIL/uL (4.5-6.0); WHITE BLOOD COUNT (AUTO) 8.5 K/uL (4.3-11.0)
[2019-06-06 07:56] LABS: BILIRUBIN,TOTAL 0.9 mg/dL (0.2-1.0); CALCIUM, SERUM 8.2 mg/dL (8.5-10.1); MAGNESIUM 1.9 mg/dL (1.8-2.4); PHOSPHORUS 3.4 mg/dL (2.5-4.9); POTASSIUM 3.5 mmol/L (3.5-5.1); TOTAL PROTEIN, SERUM 5.9 g/dL (6.4-8.2)
[2019-06-06 08:00] VITALS: BP 153/79
[2019-06-06] MEDS: VANCOMYCIN 0.75 GM in IV D5W 250 ML IV SCH (08:08)
[2019-06-06] MEDS: FAMOTIDINE/PF INJ 20 MG/2 ML VIAL IV SCH (08:15)
[2019-06-06] MEDS ORDERED: LEVO750T21 PO (09:50)
[2019-06-06] MEDS ORDERED: ALBU1.257 NEB (09:50)
[2019-06-06 12:00] VITALS: BP 116/68
--- NOTE | 2019-06-06 13:26 | NUR ---
GAVE TELEPHONE REPORT TO KAS[facility]DRA FROM [facility].
--- NOTE | 2019-06-06 18:00 | NUR ---
JAMAL (NIECE) BY PT'S BEDSIDE, SIGNED PERSONAL BELONGINGS FORM, ALL DISCHARGE INSTRUCTIONS EXPLAINED TO PT'S FAMILY, UNDERSTANDING VERBALIZED. GAVE REPORT TO MELISA RODRIGUEZ.
--- NOTE | 2019-06-06 18:12 | NUR ---
LEFT UNIT VIA GURNEY IN STABLE CONDITION
== END 2019-06-06 18:10 | DRG 177 ==
LOC: ER 14:23 → TELE1 17:19 → MEDSG1 06-03 11:00 → TELE1 06-03 22:33 → MEDSG1 06-04 10:42
PROVIDERS: ADMIT Internal Medicine; ATTEND Internal Medicine
DX: J69.0 Pneumonitis due to inhalation of food and vomit (principal); I21.A1 Myocardial infarction type 2; N17.0 Acute kidney failure with tubular necrosis; G93.41 Metabolic encephalopathy; E43 Unspecified severe protein-calorie malnutrition; E87.0 Hyperosmolality and hypernatremia; F03.91 Unspecified dementia, unspecified severity, with behavioral disturbance; R64 Cachexia; E87.2 Acidosis; E86.1 Hypovolemia; K21.9 Gastro-esophageal reflux disease without esophagitis; N40.1 Benign prostatic hyperplasia with lower urinary tract symptoms; I25.10 Atherosclerotic heart disease of native coronary artery without angina pectoris; I10 Essential (primary) hypertension; F03.90 Unspecified dementia, unspecified severity, without behavioral disturbance, psychotic disturbance, mood disturbance, and anxiety; R55 Syncope and collapse; E88.09 Other disorders of plasma-protein metabolism, not elsewhere classified; R32 Unspecified urinary incontinence; Z86.73 Personal history of transient ischemic attack (TIA), and cerebral infarction without residual deficits; K40.20 Bilateral inguinal hernia, without obstruction or gangrene, not specified as recurrent; Z68.20 Body mass index [BMI] 20.0-20.9, adult; E87.6 Hypokalemia; N40.0 Benign prostatic hyperplasia without lower urinary tract symptoms
CPT/HCPCS: 36415; 71045-TC; 76700-TC; 76770-TC; 80048-TC; 80053-TC; 80061-TC; 80076-TC; 80202-TC; 81000-TC; 83605-TC; 83735-TC; 84100-TC; 84155; 84165; 84484-TC; 85025-TC; 85730-TC; 87040-TC; 87081-TC; 87086-TC; 92526; 92611-TC; 93307-TC; 94799-TC; A4349; C9113; G0378; J0780; J2543; J3370; J3480; J3490; J7030; J7060